=== PATIENT | female | born 1955 | race Caucasian/White ===

== ENCOUNTER 2018-12-31 05:52 | Emergency (ER) | payer BC, OTHER ==
[2018-12-31] MEDS ORDERED: Metoprolol Tartrate 25 MG Tab PO ONE (06:05)
[2018-12-31] MEDS ORDERED: Sodium Chloride 0.9% 10 ML Syringe FLUSH PRN (06:53)
[2018-12-31] MEDS ORDERED: Magnesium Sulfate/Water 2 GM in Premix Bag 1 BAG IV ONE (06:54)
--- NOTE | 2018-12-31 07:10 | EDM.PDOC ---
ED HPI GENERAL MEDICAL PROBLEM - General Chief Complaint: Cardiovascular Problem Stated Complaint: Hypertension Time Seen by Provider: 12/31/18 06:24 Source of Information: Reports: Patient History Limitations: Reports: No Limitations - History of Present Illness INITIAL COMMENTS - FREE TEXT/NARRATIVE: Patient here due to elevated BP this morning. Systolic exceeded 200 and diastolic was in the 100s. Was on same dose of HTN med for years per self report--a combination pill of Lisinopril and HCTZ. She said that this pill kept her in normal range very well. She admit that she does not take her BP at home, but was surprised to find that her BP was abnormal during a routine check up recently. Since then they have been changing around her medication. At times her BP was too low vs too high. Most recently they had her on Lisinopril 5mg alone, which was increased to 20mg yesterday because to BP was so elevated. Currently on no diuretic therapy. Some dizziness yesterday. Denies dizziness/headache/neuro changes/visual change today. Feels ok overall. Is a smoker, less then one pack per day. - Related Data Allergies Allergy/AdvReac Type Severity Reaction Status Date / Time aspirin Allergy Blisters Verified 05/14/18 08:52 morphine Allergy Hypotension Verified 05/14/18 08:52 Home Meds: Home Meds atorvaSTATin Calcium [Atorvastatin Calcium] 20 mg PO DAILY 10/29/17 [History] Acetaminophen [Tylenol] 650 mg PO Q4H PRN 12/31/18 [History] Cetirizine HCl 10 mg PO DAILY 12/31/18 [History] Cholecalciferol (Vitamin D3) [Vitamin D3] 2,000 unit PO DAILY 12/31/18 [History] Cyanocobalamin (Vitamin B12) [Cyanocobalamin] 1,000 mcg INJECT ASDIRECTED [History] Folic Acid 1 mg PO DAILY 12/31/18 [History] Lisinopril 20 mg PO DAILY 12/31/18 [History] Past Medical History HEENT History: Reports: Impaired Vision Cardiovascular History: Reports: High Cholesterol, Hypertension 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: Reports: COPD 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: - Infectious Disease History Infectious Disease History: Reports: Chicken Pox, Measles, Mumps - Past Surgical History Female Surgical History: Reports: Cystectomy Musculoskeletal Surgical History: Reports: Hip Replacement, Knee Replacement Social & Family History - Family History Family Medical History: Noncontributory - Tobacco Use Smoking Status *Q: Current Every Day Smoker Years of Tobacco use: 45 Packs/Tins Daily: 0.7 Smoking Cessation Information Provided To Patient: Patient Refused - Caffeine Use Caffeine Use: Reports: Soda - Alcohol Use Alcohol Use History: No Alcohol Use Frequency: Rarely - Recreational Drug Use Recreational Drug Use: No Drug Use in Last 12 Months: No ED ROS GENERAL - Review of Systems Review Of Systems: See Below Constitutional: Reports: No Symptoms HEENT: Reports: No Symptoms Respiratory: Reports: Cough (has chronic smoker's cough, no acute changes) Cardiovascular: Reports: No Symptoms. Denies: Chest Pain GI/Abdominal: Reports: No Symptoms : Reports: No Symptoms Musculoskeletal: Reports: No Symptoms Skin: Reports: No Symptoms Neurological: Reports: No Symptoms. Denies: Dizziness, Headache, Numbness, Tingling Psychiatric: Reports: No Symptoms Hematologic/Lymphatic: Reports: No Symptoms ED EXAM, GENERAL - Physical Exam Exam: See Below Exam Limited By: No Limitations General Appearance: Alert, WD/WN, No Apparent Distress Eye Exam: Bilateral Eye: EOMI, PERRL Ears: Normal External Exam, Hearing Grossly Normal Nose: No: Nasal Deformity, Nasal Swelling, Nasal Drainage Throat/Mouth: Normal Lips, Normal Voice, No Airway Compromise Head: Atraumatic, Normocephalic Neck: Supple, Non-Tender Respiratory/Chest: No Respiratory Distress, Lungs Clear, Normal Breath Sounds, No Accessory Muscle Use, Chest Non-Tender Cardiovascular: Regular Rate, Rhythm, No Murmur GI/Abdominal: Soft, Non-Tender (Female) Exam: Deferred Rectal (Female) Exam: Deferred Back Exam: No: CVA Tenderness (L), CVA Tenderness (R), Muscle Spasm Extremities: Non-Tender, Normal Capillary Refill Neurological: Alert, Oriented, Normal Cognition, Normal Gait, No Motor/Sensory Deficits Psychiatric: Normal Affect, Normal Mood Skin Exam: Warm, Dry, Intact Course - Vital Signs Last Recorded V/S: Last Vital Signs Temp 36.6 C 12/31/18 05:55 Pulse 71 12/31/18 08:35 Resp 18 12/31/18 08:35 BP 163/85 H 12/31/18 08:35 Pulse Ox 94 L 12/31/18 08:35 - Orders/Labs/Meds Orders: Active Orders 24 hr Category Date Time Status Cardiac Monitoring [RC] . DIRECTED Care 12/31/18 06:04 Active RT Aerosol Therapy [RC] ASDIRECTED Care 12/31/18 07:33 Active Saline Lock Insert [OM.PC] Routine Oth 12/31/18 06:53 Ordered Labs: Laboratory Tests 12/31/18 12/31/18 12/31/18 Range/Units 06:13 06:13 06:13 WBC 3.6 L (4.0-10.2) K/uL RBC 3.90 (3.77-5.09) M/uL Hgb 13.6 (11.7-15.5) g/dL Hct 40.4 (34.0-46.0) % MCV 103.6 H (84.0-98.0) fL MCH 34.9 H (28.2-33.3) pg MCHC 33.7 (31.7-36.0) g/dL RDW 12.1 (11.2-14.1) % Plt Count 124 L (150-350) K/uL Neut % (Auto) 45.4 (45.0-80.0) % Lymph % (Auto) 34.2 (10.0-50.0) % [place] % (Auto) 10.2 (2.0-14.0) % Eos % (Auto) 9.4 H (0.0-5.0) % Baso % (Auto) 0.8 (0.0-2.0) % Neut # (Auto) 1.65 (1.40-7.00) K/uL Lymph # (Auto) 1.24 (0.50-3.50) K/uL [place] # (Auto) 0.37 (0.00-1.00) K/uL Eos # (Auto) 0.34 (0.00-0.50) K/uL Baso # (Auto) 0.03 (0.00-0.20) K/uL Sodium 144 (136-145) mmol/L Potassium 3.9 (3.5-5.1) mmol/L Chloride 105 (98-107) mmol/L Carbon Dioxide 29.0 (21.0-32.0) mmol/L BUN 14 (7-18) mg/dL Creatinine 1.24 H (0.51-1.17) mg/dL Est Cr Clr Drug Dosing 41.79 mL/min Estimated GFR (MDRD) 44 mL/min Glucose 88 (74-106) mg/dL Calcium 8.9 (8.5-10.1) mg/dL Magnesium 1.3 L (1.8-2.4) mg/dL Total Bilirubin 0.5 (0.2-1.0) mg/dL AST 23 (15-37) U/L ALT 23 (12-78) U/L Alkaline Phosphatase 102 (46-116) IU/L Total Protein 6.3 L (6.4-8.2) g/dL Albumin 3.1 L (3.4-5.0) g/dL Meds: Medications Discontinued Medications Generic Name Dose Route Start Last Admin Trade Name Freq PRN Reason Stop Dose Admin Albuterol/Ipratropium 3 ml 12/31/18 07:33 12/31/18 07:53 Duoneb 3.0-0.5 Mg/3 Ml NEB 12/31/18 07:34 3 ml ONETIME ONE Administration Magnesium Sulfate 2 gm/ Premix 50 mls @ 50 mls/hr 12/31/18 06:54 12/31/18 07: 12 IV 12/31/18 07:53 50 mls/hr ONETIME ONE Administration Metoprolol Tartrate 25 mg 12/31/18 06:05 12/31/18 06:30 Lopressor PO 12/31/18 06:06 25 mg ONETIME ONE Administration Sodium Chloride 10 ml 12/31/18 06:53 12/31/18 07:13 Saline Flush FLUSH 10 ml ASDIRECTED PRN Administration Keep Vein Open - Re-Assessments/Exams Free Text/Narrative Re-Assessment/Exam: 12/31/18 07:21 Magnesium level quite low. WBC mildly reduced, lower platelets, albumin and total protein. BP initially seemed to improve after arrival to ER, patient had taken her Lisinopril 1/2 hour earlier. After it became elevated again a small dose of Metoprolol was given. Once lab results were available and it was known that she was significantly Mag deficient, IV Mag was ordered to help improve patient' s levels as low Mag is linked to hypertension. Suspect low levels were at least partially caused by the diuretic patient was previously taking. Patient agreeable with the IV Mag replacement. Time spent discussing nutrition/starting daily Magnesium replacement therapy. Plan at this time is to have patient monitored while receiving the Magnesium. If BPs improve and remain stable she will be discharged home. Patient will be able to monitor her BP trends at home. She is to follow up in the ER if she has further problems, but should otherwise follow up tomorrow at her clinic appointment for recheck and further medication adjustment as needed. Single neb given to patient to see if she felt subjective improvement in her chronic cough suspected to be related to COPD. Suggested that she may wish to discuss trying to add inhalers to her routine regimen to help with suspected COPD secondary to smoking BP much improved at time of discharge. Departure - Departure Time of Disposition: 08:30 Disposition: Home, Self-Care 01 Condition: Good Clinical Impression: Hypomagnesemia Hypertensive heart disease Qualifiers: Heart failure presence: unspecified whether heart failure present Qualified Code(s): I11.9 - Hypertensive heart disease without heart failure Instructions: Hypomagnesemia Referrals: Jordana Bush LINING CLEANER [Primary Care Provider] - Forms: ED Department Discharge Additional Instructions: Continue to monitor your blood pressures today every few hours and record them. Take your diary to your appointment tomorrow for review. We gave you a single dose of Metoprolol today in addition to giving Magnesium. It is recommended that you start taking a Magnesium supplement, aim for around 500mg daily for now. Continue to work with your primary doctor on adjusting your blood pressure medication. If you feel improved after the neb treatment you were given today (breathing a bit easier/less cough), also discuss possibly starting on some inhalers to help with lung function and lessen the impact of smoking related cough. Follow up in the ER as needed if you redevelop problems. - My Orders Last 24 Hours: My Active Orders 12/31/18 06:04 Cardiac Monitoring [RC] . DIRECTED 12/31/18 06:53 Saline Lock Insert [OM.PC] Routine 12/31/18 07:33 RT Aerosol Therapy [RC] ASDIRECTED - Assessment/Plan Last 24 Hours: My Active Orders 12/31/18 06:04 Cardiac Monitoring [RC] . DIRECTED 12/31/18 06:53 Saline Lock Insert [OM.PC] Routine 12/31/18 07:33 RT Aerosol Therapy [RC] ASDIRECTED
[2018-12-31] MEDS ORDERED: Albuterol/Ipratropium 3.0-0.5 MG/3 ML Neb Soln NEB ONE (07:33)
== END 2018-12-31 08:50 | disposition home or self-care (01) ==
LOC: LL.ED 05:52
DX: I11.9 Hypertensive heart disease without heart failure (principal); E83.42 Hypomagnesemia; J44.9 Chronic obstructive pulmonary disease, unspecified; Z79.899 Other long term (current) drug therapy; F17.210 Nicotine dependence, cigarettes, uncomplicated; Z88.6 Allergy status to analgesic agent; Z88.5 Allergy status to narcotic agent
CPT/HCPCS: 36415; 80053; 83735; 85025; 94640; 96365; 99283-25; A4217; A9270-GY; J3475; J7620-GY

== ENCOUNTER 2019-02-03 10:05 | Emergency (ER) | payer BC, OTHER ==
--- NOTE | 2019-02-03 10:41 | EDM.PDOC ---
ED HPI GENERAL MEDICAL PROBLEM - General Chief Complaint: Cardiovascular Problem Stated Complaint: HYPERTENSION Time Seen by Provider: 02/03/19 10:36 Source of Information: Reports: Patient History Limitations: Reports: No Limitations - History of Present Illness INITIAL COMMENTS - FREE TEXT/NARRATIVE: Patient is a 64-year-old female who works at [employer] states that she went to the nurse's station at [employer] to check her blood pressure at that time it was noted that her blood pressure was elevated at this time she was referred to the hospital for evaluation and treatment patient is initial blood pressure was 198/ 102 after about 30 minutes rest her blood pressure came down to 155/92. Patient is asymptomatic at this point with no chest pain headaches. Onset: Unknown/Unsure Duration: Waxing/Waning (Patient has been seen by provider and blood pressure medication adjusted in the clinic) Location: Reports: Generalized Severity: Mild Improves with: Reports: Rest Worsens with: Reports: Other (Activity) Associated Symptoms: Reports: No Other Symptoms - Related Data Allergies Allergy/AdvReac Type Severity Reaction Status Date / Time aspirin Allergy Blisters Verified 05/14/18 08:52 morphine Allergy Hypotension Verified 05/14/18 08:52 Home Meds: Home Meds atorvaSTATin Calcium [Atorvastatin Calcium] 20 mg PO DAILY 10/29/17 [History] Acetaminophen [Tylenol] 650 mg PO Q4H PRN 12/31/18 [History] Cetirizine HCl 10 mg PO DAILY 12/31/18 [History] Cholecalciferol (Vitamin D3) [Vitamin D3] 2,000 unit PO DAILY 12/31/18 [History] Cyanocobalamin (Vitamin B12) [Cyanocobalamin] 1,000 mcg INJECT ASDIRECTED [History] Folic Acid 1 mg PO DAILY 12/31/18 [History] Lisinopril 30 mg PO DAILY 12/31/18 [History] Magnesium 500 mg PO DAILY 02/03/19 [History] Metoprolol Succinate [Toprol XL 50mg] 50 mg PO DAILY 30 Days #30 tab.er [Rx] Past Medical History HEENT History: Reports: Impaired Vision Cardiovascular History: Reports: High Cholesterol, Hypertension 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: Reports: 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: - Infectious Disease History Infectious Disease History: Reports: Chicken Pox, Measles, Mumps - Past Surgical History Female Surgical History: Reports: Cystectomy Musculoskeletal Surgical History: Reports: Hip Replacement, Knee Replacement Social & Family History - Family History Family Medical History: Noncontributory - Tobacco Use Smoking Status *Q: Current Every Day Smoker Years of Tobacco use: 47 Packs/Tins Daily: 1 - Caffeine Use Caffeine Use: Reports: Soda ED ROS GENERAL - Review of Systems Review Of Systems: See Below Constitutional: Reports: No Symptoms HEENT: Reports: Other (Post nasal drip) Respiratory: Reports: Cough (Secondary to postnasal drip) Cardiovascular: Reports: No Symptoms Endocrine: Reports: No Symptoms GI/Abdominal: Reports: No Symptoms : Reports: No Symptoms Musculoskeletal: Reports: No Symptoms Skin: Reports: No Symptoms Neurological: Reports: No Symptoms Psychiatric: Reports: No Symptoms Hematologic/Lymphatic: Reports: No Symptoms Immunologic: Reports: No Symptoms ED EXAM, GENERAL - Physical Exam Exam: See Below Exam Limited By: No Limitations General Appearance: Alert, WD/WN, No Apparent Distress Eye Exam: Bilateral Eye: EOMI, PERRL Ears: Normal External Exam, Normal Canal, Hearing Grossly Normal, Normal TMs Ear Exam: Bilateral Ear: Auricle Normal, Canal Normal, TM normal Nose: Normal Inspection Throat/Mouth: Normal Inspection, Normal Lips, Normal Teeth, Normal Gums, Normal Oropharynx, Normal Voice, No Airway Compromise Head: Atraumatic, Normocephalic Neck: Normal Inspection, Supple, Non-Tender, Full Range of Motion Respiratory/Chest: No Respiratory Distress, Lungs Clear, Normal Breath Sounds, No Accessory Muscle Use, Chest Non-Tender, Stridor (Right mid chest) GI/Abdominal: Normal Bowel Sounds, Soft, Non-Tender, No Organomegaly, No Distention, No Abnormal Bruit, No Mass (Female) Exam: Deferred Rectal (Female) Exam: Deferred Back Exam: Normal Inspection, Full Range of Motion, NT Extremities: Normal Inspection, Normal Range of Motion, Non-Tender, Normal Capillary Refill, No Pedal Edema Neurological: Alert, Oriented, CN II-XII Intact, Normal Cognition, Normal Gait, Normal Reflexes, No Motor/Sensory Deficits Psychiatric: Normal Affect, Normal Mood Skin Exam: Warm, Dry, Intact, Normal Color, No Rash Lymphatic: No Adenopathy Course - Vital Signs Last Recorded V/S: Last Vital Signs Temp 98.2 F 02/03/19 10:05 Pulse 88 02/03/19 11:10 Resp 16 02/03/19 10:05 BP 152/92 H 02/03/19 11:10 Pulse Ox 93 L 02/03/19 10:05 - Orders/Labs/Meds Orders: Active Orders 24 hr Category Date Time Status Chest 2V [CR] Stat Exams 02/03/19 10:35 Ordered COMPREHENSIVE METABOLIC PN,CMP [CHEM] Stat Lab 02/03/19 10:34 Ordered MAGNESIUM [CHEM] Stat Lab 02/03/19 10:34 Ordered Metoprolol Succinate [Toprol XL] Med 02/03/19 11:04 Ordered 50 mg PO BEDTIME Medication Orders Metoprolol Succinate (Toprol Xl) 50 mg PO BEDTIME VIDYA Last Admin: 02/03/19 11:10 Dose: 50 mg Labs: Laboratory Tests 02/03/19 Range/Units 11:01 WBC 7.2 (4.0-10.2) K/uL RBC 4.16 (3.77-5.09) M/uL Hgb 14.4 (11.7-15.5) g/dL Hct 42.0 (34.0-46.0) % MCV 101.0 H (84.0-98.0) fL MCH 34.6 H (28.2-33.3) pg MCHC 34.3 (31.7-36.0) g/dL RDW 12.3 (11.2-14.1) % Plt Count 138 L (150-350) K/uL Neut % (Auto) 69.0 (45.0-80.0) % Lymph % (Auto) 24.1 (10.0-50.0) % [place] % (Auto) 5.7 (2.0-14.0) % Eos % (Auto) 0.8 (0.0-5.0) % Baso % (Auto) 0.4 (0.0-2.0) % Neut # (Auto) 4.96 (1.40-7.00) K/uL Lymph # (Auto) 1.73 (0.50-3.50) K/uL [place] # (Auto) 0.41 (0.00-1.00) K/uL Eos # (Auto) 0.06 (0.00-0.50) K/uL Baso # (Auto) 0.03 (0.00-0.20) K/uL Meds: Medications Generic Name Dose Route Start Last Admin Trade Name Ginger PRN Reason Stop Dose Admin Metoprolol Succinate 50 mg 02/03/19 11:04 02/03/19 11:10 Toprol Xl PO 50 mg BEDTIME VIDYA Administration Departure - Departure Time of Disposition: 11:53 Disposition: Home, Self-Care 01 Condition: Good Clinical Impression: Hypertensive heart disease Qualifiers: Heart failure presence: unspecified whether heart failure present Qualified Code(s): I11.9 - Hypertensive heart disease without heart failure Instructions: Metoprolol extended-release tablets Referrals: Jordana Bush COLLECTIONS CURATOR [Primary Care Provider] - Forms: ED Department Discharge Care Plan Goals: Patient seen in the ER Toprol XL started will recheck blood pressure in half an hour at that time I'll send her home she may return to work tomorrow follow-up with primary provider in 2 days0 - My Orders Last 24 Hours: My Active Orders 02/03/19 10:34 COMPREHENSIVE METABOLIC PN,CMP [CHEM] Stat MAGNESIUM [CHEM] Stat 02/03/19 10:35 Chest 2V [CR] Stat 02/03/19 11:04 Metoprolol Succinate [Toprol XL] 50 mg PO BEDTIME - Assessment/Plan Last 24 Hours: My Active Orders 02/03/19 10:34 COMPREHENSIVE METABOLIC PN,CMP [CHEM] Stat MAGNESIUM [CHEM] Stat 02/03/19 10:35 Chest 2V [CR] Stat 02/03/19 11:04 Metoprolol Succinate [Toprol XL] 50 mg PO BEDTIME
[2019-02-03] MEDS ORDERED: Metoprolol Succinate 50 MG Tab.ER PO SCH (11:04)
== END 2019-02-03 12:00 | disposition home or self-care (01) ==
LOC: LL.ED 10:05
DX: I11.9 Hypertensive heart disease without heart failure (principal); E78.00 Pure hypercholesterolemia, unspecified; I10 Essential (primary) hypertension; J44.9 Chronic obstructive pulmonary disease, unspecified; F17.210 Nicotine dependence, cigarettes, uncomplicated; Z88.6 Allergy status to analgesic agent; Z88.5 Allergy status to narcotic agent; Z79.899 Other long term (current) drug therapy
CPT/HCPCS: 36415; 71046; 80053; 83735; 85025; 99283; A9270

== ENCOUNTER 2020-12-11 21:18 | Observation (INO) | payer MEDICARE, OTHER ==
[2020-12-11] MEDS ORDERED: Potassium Chloride 10 MEQ Tab.ER PO ONE (22:26)
[2020-12-11] MEDS ORDERED: Acetaminophen 325 MG Tab PO ONE (22:26)
--- NOTE | 2020-12-11 22:40 | EDM.PDOC ---
ED HPI GENERAL MEDICAL PROBLEM - General Chief Complaint: Lower Extremity Injury/Pain Stated Complaint: right hip pain Time Seen by Provider: 12/11/20 22:01 Source of Information: Reports: Patient History Limitations: Reports: No Limitations - History of Present Illness INITIAL COMMENTS - FREE TEXT/NARRATIVE: Patient fell at home this morning. Unable to get up on own due to previous knee/hip replacement surgery. Unable to get a hand onto her phone either for most of the day. Finally able to use items to prod at the phone and get it to fall to floor so she could reach phone. Able to call for help approx 12 hours after fall. Complains of right lateral hip and right knee pain. Denies other injuries. Hx right hip arthroplasty. No new numbness or tingling of limbs. Did not hit head/no LOC. Denies new back/chest/abdominal/arm pain. No left sided leg pain. No nausea/emesis/bowel changes. No SOB. No other reported acute changes. Right Hip Pain Score (Numeric/FACES): 10 - Related Data Allergies Allergy/AdvReac Type Severity Reaction Status Date / Time aspirin Allergy Blisters Verified 12/11/20 21:36 morphine Allergy Hypotension Verified 12/11/20 21:36 Home Meds: Home Meds atorvaSTATin Calcium [Atorvastatin Calcium] 20 mg PO DAILY 10/29/17 [History] Acetaminophen [Tylenol] 650 mg PO Q4H PRN 12/31/18 [History] Cetirizine HCl 10 mg PO DAILY 12/31/18 [History] Cholecalciferol (Vitamin D3) [Vitamin D3] 2,000 unit PO DAILY 12/31/18 [History] Cyanocobalamin (Vitamin B12) [Cyanocobalamin] 1,000 mcg PO ASDIRECTED 12/31/18 [History] Folic Acid 1 mg PO DAILY 12/31/18 [History] Magnesium 500 mg PO DAILY 02/03/19 [History] Gabapentin [Neurontin] 200 mg PO BEDTIME 12/11/20 [History] Ibuprofen 600 mg PO BID PRN 12/11/20 [History] Losartan Potassium [Cozaar] 50 mg PO DAILY 12/11/20 [History] Past Medical History HEENT History: Reports: Impaired Vision Cardiovascular History: Reports: High Cholesterol, Hypertension 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: Reports: COPD 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: - Infectious Disease History Infectious Disease History: Reports: Chicken Pox, Measles, Mumps - Past Surgical History Cardiovascular Surgical History: Reports: None Female Surgical History: Reports: Cystectomy Musculoskeletal Surgical History: Reports: Hip Replacement, Knee Replacement Social & Family History - Family History Family Medical History: No Pertinent Family History - Tobacco Use Tobacco Use Status *Q: Current Every Day Tobacco User Years of Tobacco use: 49 Packs/Tins Daily: 0.7 - Caffeine Use Caffeine Use: Reports: Soda Caffeine Use Comment: very occasionally - Alcohol Use Alcohol Use History: No - Recreational Drug Use Recreational Drug Use: No Drug Use in Last 12 Months: No Review of Systems - Review of Systems Review Of Systems: Comprehensive ROS is negative, except as noted in HPI. ED EXAM, GENERAL - Physical Exam Exam: See Below Exam Limited By: No Limitations General Appearance: Alert, WD/WN, No Apparent Distress Eye Exam: Bilateral Eye: EOMI, PERRL Ears: Hearing Grossly Normal Nose: No: Nasal Deformity, Nasal Swelling, Nasal Drainage Throat/Mouth: Normal Lips, Normal Voice, No Airway Compromise Head: No: Facial Swelling, Facial Tenderness Neck: Supple, Non-Tender, Full Range of Motion Respiratory/Chest: No Respiratory Distress, Lungs Clear, Normal Breath Sounds, No Accessory Muscle Use, Chest Non-Tender Cardiovascular: Normal Peripheral Pulses, Regular Rate, Rhythm, No Edema, No Murmur GI/Abdominal: Normal Bowel Sounds, Soft, Non-Tender, No Distention (Female) Exam: Deferred Rectal (Female) Exam: Deferred Back Exam: No: Muscle Spasm, Paraspinal Tenderness, Vertebral Tenderness Extremities: Normal Capillary Refill, Limited Range of Motion (Right hip), Other (Tender lateral aspect of right hip. Tender around right knee diffusely. No deformity/swelling. Bruise medial knee. Able to move knee a bit when asked. ). No: Brice's Sign, Increased Warmth, Mottled, Pallor, Redness Neurological: Alert, Oriented, Normal Cognition Psychiatric: Normal Affect, Normal Mood Skin Exam: Warm, Dry. No: Wound/Incision Course - Vital Signs Last Recorded V/S: Last Vital Signs Temp 38.0 C 12/11/20 21:23 Pulse 89 12/11/20 21:40 Resp 20 12/11/20 21:23 BP 127/60 12/11/20 21:40 Pulse Ox 89 L 12/11/20 21:40 - Orders/Labs/Meds Orders: Active Orders 24 hr Category Date Time Status Chest 1V Frontal [CR] Stat Exams 12/11/20 22:27 Ordered Hip Min 2V or 3V Rt [CR] Stat Exams 12/11/20 21:28 Ordered Knee 1V or 2V Rt [CR] Stat Exams 12/11/20 22:24 Ordered Pelvis 1V or 2V [CR] Stat Exams 12/11/20 22:24 Taken Labs: Laboratory Tests 12/11/20 12/11/20 Range/Units 21:39 21:39 WBC 6.8 (4.0-10.2) K/uL RBC 2.87 L (3.77-5.09) M/uL Hgb 9.5 L D (11.7-15.5) g/dL Hct 29.4 L (34.0-46.0) % MCV 102.4 H (84.0-98.0) fL MCH 33.1 (28.2-33.3) pg MCHC 32.3 (31.7-36.0) g/dL RDW 16.5 H (11.2-14.1) % Plt Count 115 L (150-350) K/uL Neut % (Auto) 82.6 H (45.0-80.0) % Lymph % (Auto) 9.4 L (10.0-50.0) % [place] % (Auto) 7.6 (2.0-14.0) % Eos % (Auto) 0.0 (0.0-5.0) % Baso % (Auto) 0.4 (0.0-2.0) % Neut # (Auto) 5.63 (1.40-7.00) K/uL Lymph # (Auto) 0.64 (0.50-3.50) K/uL [place] # (Auto) 0.52 (0.00-1.00) K/uL Eos # (Auto) 0.00 (0.00-0.50) K/uL Baso # (Auto) 0.03 (0.00-0.20) K/uL Sodium 141 (136-145) mmol/L Potassium 3.4 L (3.5-5.1) mmol/L Chloride 102 (98-107) mmol/L Carbon Dioxide 29.8 (21.0-32.0) mmol/L BUN 15 (7-18) mg/dL Creatinine 1.12 (0.51-1.17) mg/dL Est Cr Clr Drug Dosing 45.97 mL/min Estimated GFR (MDRD) 49 mL/min Glucose 143 H (70-99) mg/dL Calcium 8.5 (8.5-10.1) mg/dL Magnesium 1.2 L (1.8-2.4) mg/dL Total Bilirubin 1.1 H (0.2-1.0) mg/dL AST 35 (15-37) U/L ALT 22 (12-78) U/L Alkaline Phosphatase 111 (46-116) IU/L Total Protein 5.6 L (6.4-8.2) g/dL Albumin 2.6 L (3.4-5.0) g/dL Meds: Medications Discontinued Medications Generic Name Dose Route Start Last Admin Trade Name Freq PRN Reason Stop Dose Admin Acetaminophen 650 mg 12/11/20 22:26 12/11/20 22:55 Acetaminophen 325 Mg Tab PO 12/11/20 22:27 650 mg NOW ONE Administration Magnesium Sulfate/Dextrose 1 100 mls @ 100 mls/hr 12/11/20 22:25 12/11/20 23:22 gm/ Premix IV 12/11/20 23:24 100 mls/hr ONETIME ONE Administration Potassium Chloride 20 meq 12/11/20 22:26 12/11/20 22:55 Potassium Chloride 10 Meq Tab.Er PO 12/11/20 22:27 20 meq ONETIME ONE Administration - Re-Assessments/Exams Free Text/Narrative Re-Assessment/Exam: 12/11/20 23:29 Xrays and basic labs ordered. Wendy-prosthetic fracture noted right hip. No obvious fracture pelvis/knee noted. Significant degenerative changes right knee joint. Chest xray shows COPD/fibrosis but no obvious acute changes. Patient is anemic, has mildly low K, and significantly low Mag. Mag replacement initiated. Call placed to [facility] and patient reviewed with Dr. Navarro/Rachele. No available beds at their facility tonight. Will admit patient observation here and obtain CT study of right hip. [facility] anticipates that a bed will open up tomorrow and patient will then be transferred to [place] tomorrow. Departure - Departure Time of Disposition: 23:40 Disposition: Refer to Observation Clinical Impression: Wendy-prosthetic femoral shaft fracture, Hypomagnesemia, Hypokalemia Anemia Qualifiers: Anemia type: unspecified type Qualified Code(s): D64.9 - Anemia, unspecified - Discharge Information *PRESCRIPTION DRUG MONITORING PROGRAM REVIEWED*: Not Applicable *COPY OF PRESCRIPTION DRUG MONITORING REPORT IN PATIENT JESSICA: Not Applicable Referrals: Jordana Bush, PROCEDURE WRITER [Primary Care Provider] - Forms: ED Department Discharge Sepsis Event Note (ED) - Evaluation Sepsis Screening Result: No Definite Risk - Focused Exam Vital Signs: Vital Signs Temp Pulse Resp BP Pulse Ox 12/11/20 21:40 89 127/60 89 L 12/11/20 21:25 89 128/74 89 L 12/11/20 21:23 38.0 C 83 20 138/85 92 L - Problem List & Annotations (1) Wendy-prosthetic femoral shaft fracture SNOMED Code(s): 841742355 Code(s): M97.8XXA - PERIPROSTH FRACTURE AROUND OTHER INTERNAL PROSTH JOINT, INIT; Z96.649 - PRESENCE OF UNSPECIFIED ARTIFICIAL HIP JOINT Status: Acute Priority: High Onset Date: 12/11/20 Annotation/Comment:: CT ordered for better evaluation of fracture. (2) Hypomagnesemia SNOMED Code(s): 412893378 Code(s): E83.42 - HYPOMAGNESEMIA Status: Chronic Priority: Medium Annotation/Comment:: Has had low Mag in past. Significantly low tonight. IV replacement ordered. (3) Hypokalemia SNOMED Code(s): 83599375 Code(s): E87.6 - HYPOKALEMIA Status: Acute Priority: Low Annotation/Comment:: mildly low value. PO supplementation initiated. (4) Hypertensive heart disease SNOMED Code(s): 14016718 Code(s): I11.9 - HYPERTENSIVE HEART DISEASE WITHOUT HEART FAILURE Status: Chronic Priority: Low Annotation/Comment:: observe trends. Stable at this time. Qualifiers: Heart failure presence: unspecified whether heart failure present Qualified Code(s): I11.9 - Hypertensive heart disease without heart failure (5) Anemia SNOMED Code(s): 216247716 Code(s): D64.9 - ANEMIA, UNSPECIFIED Status: Acute Priority: Medium Annotation/Comment:: Hgb 9.5. Patient to continue workup for this at [facility] and with her primary provider. 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 - Problem List Review Problem List Initiated/Reviewed/Updated: Yes - My Orders Last 24 Hours: My Active Orders 12/11/20 21:28 Hip Min 2V or 3V Rt [CR] Stat 12/11/20 22:24 Knee 1V or 2V Rt [CR] Stat Pelvis 1V or 2V [CR] Stat 12/11/20 22:27 Chest 1V Frontal [CR] Stat - Assessment/Plan Admission H&P: Please use this note as an admission H&P Last 24 Hours: My Active Orders 12/11/20 21:28 Hip Min 2V or 3V Rt [CR] Stat 12/11/20 22:24 Knee 1V or 2V Rt [CR] Stat Pelvis 1V or 2V [CR] Stat 12/11/20 22:27 Chest 1V Frontal [CR] Stat Assessment:: as above. Stable and suitable for general supervision. Plan: as above. Pain control/assistance with ADLs until able to transfer pt to [facility] for Orthopedic care.
[2020-12-11] MEDS ORDERED: Gabapentin 100 MG Cap PO ONE (23:58)
[2020-12-12] MEDS ORDERED: Acetaminophen 325 MG Tab PO PRN (00:40)
[2020-12-12] MEDS ORDERED: Ibuprofen 200 MG Tab PO PRN (00:40)
[2020-12-12] MEDS ORDERED: Sodium Chloride 0.9% 1,000 ML IV SCH ×2 (01:00→16:18)
[2020-12-12] MEDS: Nicotine 21 MG/24 Hr Patch TRDERM SCH ×3 (01:33→17:03)
[2020-12-12] MEDS: traMADol 50 MG Tab PO PRN ×4 (01:50→16:49)
[2020-12-12] MEDS ORDERED: atorvaSTATin 10 MG Tab PO SCH (08:00)
[2020-12-12] MEDS ORDERED: Cetirizine 10 MG Tab PO SCH (08:00)
[2020-12-12] MEDS ORDERED: Losartan 50 MG Tab PO SCH (08:00)
[2020-12-12] MEDS ORDERED: Potassium Chloride 20 MEQ Tab.ER PO ONE ×3 (09:30→13:30)
--- NOTE | 2020-12-12 17:08 | PCM.DCSUM1 ---
Discharge Summary - Hospital Course Brief History: Patient admitted observation with acute periprosthetic fracture right hip for pain control while waiting for clearance to transfer patient to Ortho at [facility] Diagnosis: Stroke: No - Discharge Data Discharge Date: 12/12/20 Discharge Disposition: DC/Tfer to Acute Hospital 02 Condition: Good - Referral to Home Health Primary Care Physician: Jordana Bush DITCHER - Discharge Diagnosis/Problem(s) (1) Wendy-prosthetic femoral shaft fracture SNOMED Code(s): 255810546 ICD Code: M97.8XXA - PERIPROSTH FRACTURE AROUND OTHER INTERNAL PROSTH JOINT, INIT; Z96.649 - PRESENCE OF UNSPECIFIED ARTIFICIAL HIP JOINT Status: Acute Priority: High Current Visit: No Onset Date: 12/11/20 Problem Details: CT ordered for better evaluation of fracture and shared with [facility]. Patient has been doing well on bedrest with PO Tylenol/Tramadol (2) Hypomagnesemia SNOMED Code(s): 202799242 ICD Code: E83.42 - HYPOMAGNESEMIA Status: Chronic Priority: Medium Current Visit: No Problem Details: Has had low Mag in past. Significantly low in ER. IV replacement with normal level noted today. (3) Hypokalemia SNOMED Code(s): 88621650 ICD Code: E87.6 - HYPOKALEMIA Status: Acute Priority: Low Current V isit: No Problem Details: mildly low value. PO supplementation initiated. Normal level at recheck this afternoon (4) Hypertensive heart disease SNOMED Code(s): 45574216 ICD Code: I11.9 - HYPERTENSIVE HEART DISEASE WITHOUT HEART FAILURE Status: Chronic Priority: Low Current Visit: No Problem Details: observe trends. Stable at this time. Qualifiers: Heart failure presence: unspecified whether heart failure present Qualified Code(s): I11.9 - Hypertensive heart disease without heart failure (5) Anemia SNOMED Code(s): 875370023 ICD Code: D64.9 - ANEMIA, UNSPECIFIED Status: Acute Priority: Medium Current Visit: No Problem Details: Hgb 9.5. Patient to continue workup for this at [facility] and with her primary provider. 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 - Patient Summary/Data Hospital Course: As above. Main goal of observation was pain control and assistance with ADLs while waiting to be able to transfer patient to higher level of care at [facility]. CT performed per Ortho request and scan sent to [facility]. Patient also with low K and Mag. Levels normalized after replacement initiated after admission. Will let [facility] determine if they wish to add Lovenox to regimen as patient is thrombocytopenic and it is anticipated that she will have surgery tomorrow. Patient comfortable as noted above using PO pain meds. - Discharge Plan *PRESCRIPTION DRUG MONITORING PROGRAM REVIEWED*: Not Applicable *COPY OF PRESCRIPTION DRUG MONITORING REPORT IN PATIENT JESSICA: Not Applicable Home Medications: Home Meds atorvaSTATin Calcium [Atorvastatin Calcium] 20 mg PO DAILY 10/29/17 [History] Acetaminophen [Tylenol] 650 mg PO Q4H PRN 12/31/18 [History] Cetirizine HCl 10 mg PO DAILY 12/31/18 [History] Cholecalciferol (Vitamin D3) [Vitamin D3] 2,000 unit PO DAILY 12/31/18 [History] Cyanocobalamin (Vitamin B12) [Cyanocobalamin] 1,000 mcg PO ASDIRECTED 12/31/18 [History] Folic Acid 1 mg PO DAILY 12/31/18 [History] Magnesium 500 mg PO DAILY 02/03/19 [History] Gabapentin [Neurontin] 200 mg PO BEDTIME 12/11/20 [History] Ibuprofen 600 mg PO BID PRN 12/11/20 [History] Losartan Potassium [Cozaar] 50 mg PO DAILY 12/11/20 [History] Forms: ED Department Discharge Referrals: Jordana Bush NP [Primary Care Provider] - - Discharge Summary/Plan Comment DC Time >30 min.: No - General Info Date of Service: 12/12/20 Admission Dx/Problem (Free Text: Paraprosthetic fracture right hip, low magnesium Functional Status: Reports: Pain Controlled, Tolerating Diet, Urinating. Denies: Ambulating, New Symptoms - Review of Systems General: Denies: Fever, Weakness, Fatigue, Malaise, Chills, Night Sweats HEENT: Reports: No Symptoms, Glasses Pulmonary: Reports: No Symptoms. Denies: Shortness of Breath, Pleuritic Chest Pain, Cough Cardiovascular: Reports: No Symptoms. Denies: Chest Pain Gastrointestinal: Reports: Diarrhea (several loose stools today). Denies: Abdominal Pain, Hematochezia, Nausea, Vomiting Genitourinary: Reports: No Symptoms Musculoskeletal: Reports: Other (right hip/knee pain) Skin: Reports: Other (right knee) Neurological: Reports: No Symptoms Psychiatric: Reports: No Symptoms - Patient Data Vitals - Most Recent: Last Vital Signs Temp 37.3 C 12/12/20 16:00 Pulse 78 12/12/20 16:00 Resp 16 12/12/20 16:00 BP 115/66 12/12/20 16:00 Pulse Ox 96 12/12/20 16:00 Weight - Most Recent: 69.853 kg I&O - Last 24 hours: Intake & Output 12/12/20 12/12/20 12/12/20 06:59 14:59 22:59 Intake Total 50 400 Output Total 60 Balance -10 400 Lab Results - Last 24 hrs: Laboratory Results - last 24 hr 12/11/20 12/11/20 12/12/20 Range/Units 21:39 21:39 07:10 WBC 6.8 (4.0-10.2) K/uL RBC 2.87 L (3.77-5.09) M/uL Hgb 9.5 L D (11.7-15.5) g/dL Hct 29.4 L (34.0-46.0) % MCV 102.4 H (84.0-98.0) fL MCH 33.1 (28.2-33.3) pg MCHC 32.3 (31.7-36.0) g/dL RDW 16.5 H (11.2-14.1) % Plt Count 115 L (150-350) K/uL Neut % (Auto) 82.6 H (45.0-80.0) % Lymph % (Auto) 9.4 L (10.0-50.0) % [place] % (Auto) 7.6 (2.0-14.0) % Eos % (Auto) 0.0 (0.0-5.0) % Baso % (Auto) 0.4 (0.0-2.0) % Neut # (Auto) 5.63 (1.40-7.00) K/uL Lymph # (Auto) 0.64 (0.50-3.50) K/uL [place] # (Auto) 0.52 (0.00-1.00) K/uL Eos # (Auto) 0.00 (0.00-0.50) K/uL Baso # (Auto) 0.03 (0.00-0.20) K/uL Sodium 141 140 (136-145) mmol/L Potassium 3.4 L 2.9 L* (3.5-5.1) mmol/L Chloride 102 104 (98-107) mmol/L Carbon Dioxide 29.8 29.3 (21.0-32.0) mmol/L BUN 15 14 (7-18) mg/dL Creatinine 1.12 1.09 (0.51-1.17) mg/dL Est Cr Clr Drug Dosing 45.97 47.24 mL/min Estimated GFR (MDRD) 49 50 mL/min Glucose 143 H 116 H (70-99) mg/dL Calcium 8.5 8.0 L (8.5-10.1) mg/dL Magnesium 1.2 L 2.0 (1.8-2.4) mg/dL Total Bilirubin 1.1 H (0.2-1.0) mg/dL AST 35 (15-37) U/L ALT 22 (12-78) U/L Alkaline Phosphatase 111 (46-116) IU/L Creatine Kinase (26-308) U/L Total Protein 5.6 L (6.4-8.2) g/dL Albumin 2.6 L (3.4-5.0) g/dL 12/12/20 12/12/20 12/12/20 Range/Units 07:10 07:10 15:35 WBC 4.8 (4.0-10.2) K/uL RBC 2.61 L (3.77-5.09) M/uL Hgb 8.5 L (11.7-15.5) g/dL Hct 26.9 L (34.0-46.0) % MCV 103.1 H (84.0-98.0) fL MCH 32.6 (28.2-33.3) pg MCHC 31.6 L (31.7-36.0) g/dL RDW 17.0 H (11.2-14.1) % Plt Count 98 L (150-350) K/uL Neut % (Auto) 62.6 (45.0-80.0) % Lymph % (Auto) 28.3 (10.0-50.0) % [place] % (Auto) 8.5 (2.0-14.0) % Eos % (Auto) 0.4 (0.0-5.0) % Baso % (Auto) 0.2 (0.0-2.0) % Neut # (Auto) 3.03 (1.40-7.00) K/uL Lymph # (Auto) 1.37 (0.50-3.50) K/uL [place] # (Auto) 0.41 (0.00-1.00) K/uL Eos # (Auto) 0.02 (0.00-0.50) K/uL Baso # (Auto) 0.01 (0.00-0.20) K/uL Sodium 135 L (136-145) mmol/L Potassium 4.0 (3.5-5.1) mmol/L Chloride 102 (98-107) mmol/L Carbon Dioxide 29.7 (21.0-32.0) mmol/L BUN 15 (7-18) mg/dL Creatinine 1.10 (0.51-1.17) mg/dL Est Cr Clr Drug Dosing 46.81 mL/min Estimated GFR (MDRD) 50 mL/min Glucose 128 H (70-99) mg/dL Calcium 8.0 L (8.5-10.1) mg/dL Magnesium (1.8-2.4) mg/dL Total Bilirubin (0.2-1.0) mg/dL AST (15-37) U/L ALT (12-78) U/L Alkaline Phosphatase (46-116) IU/L Creatine Kinase 166 (26-308) U/L Total Protein (6.4-8.2) g/dL Albumin (3.4-5.0) g/dL Med Orders - Current: Current Medications Acetaminophen (Acetaminophen 325 Mg Tab) 650 mg PO Q4H PRN PRN Reason: Pain Atorvastatin Calcium (Atorvastatin 10 Mg Tab) 20 mg PO DAILY [facility] Last Admin: 12/12/20 07:18 Dose: 20 mg Documented by: Cetirizine HCl (Cetirizine 10 Mg Tab) 10 mg PO DAILY [facility] Last Admin: 12/12/20 07:19 Dose: 10 mg Documented by: Gabapentin (Gabapentin 100 Mg Cap) 200 mg PO BEDTIME [facility] Sodium Chloride (Normal Saline) 1,000 mls @ 75 mls/hr IV ASDIRECTED [facility] Last Admin: 12/12/20 16:47 Dose: 75 mls/hr Documented by: Ibuprofen (Ibuprofen 200 Mg Tab) 600 mg PO BID PRN PRN Reason: Pain Losartan Potassium (Losartan 50 Mg Tab) 50 mg PO DAILY [facility] Last Admin: 12/12/20 07:20 Dose: 50 mg Documented by: Nicotine (Nicotine 21 Mg/24 Hr Patch) 21 mg TRDERM DAILY [facility] Last Admin: 12/12/20 07:17 Dose: Not Given Documented by: Tramadol HCl (Tramadol 50 Mg Tab) 50 mg PO Q4H PRN PRN Reason: Pain Last Admin: 12/12/20 16:49 Dose: 50 mg Documented by: Discontinued Medications Acetaminophen (Acetaminophen 325 Mg Tab) 650 mg PO NOW ONE Stop: 12/11/20 22:27 Last Admin: 12/11/20 22:55 Dose: 650 mg Documented by: Gabapentin (Gabapentin 100 Mg Cap) 200 mg PO ONETIME ONE Stop: 12/11/20 23:59 Last Admin: 12/12/20 01:32 Dose: 200 mg Documented by: Magnesium Sulfate/Dextrose 1 (gm/ Premix) 100 mls @ 100 mls/hr IV ONETIME ONE Stop: 12/11/20 23:24 Last Admin: 12/11/20 23:22 Dose: 100 mls/hr Documented by: Magnesium Sulfate/Dextrose 1 (gm/ Premix) 100 mls @ 100 mls/hr IV ONETIME ONE Stop: 12/12/20 01:39 Last Admin: 12/12/20 01:31 Dose: 100 mls/hr Documented by: Sodium Chloride (Normal Saline) 1,000 mls @ 100 mls/hr IV ASDIRECTED [facility] Last Admin: 12/12/20 04:10 Dose: 100 mls/hr Documented by: Potassium Chloride (Potassium Chloride 10 Meq Tab.Er) 20 meq PO ONETIME ONE Stop: 12/11/20 22:27 Last Admin: 12/11/20 22:55 Dose: 20 meq Documented by: Potassium Chloride (Potassium Chloride 20 Meq Tab.Er) 40 meq PO NOW ONE Stop: 12/12/20 09:31 Last Admin: 12/12/20 09:51 Dose: 40 meq Documented by: Potassium Chloride (Potassium Chloride 20 Meq Tab.Er) 20 meq PO ONETIME ONE Stop: 12/12/20 11:31 Last Admin: 12/12/20 11:37 Dose: 20 meq Documented by: Potassium Chloride (Potassium Chloride 20 Meq Tab.Er) 20 meq PO ONETIME ONE Stop: 12/12/20 13:31 Last Admin: 12/12/20 14:03 Dose: 20 meq Documented by: - Exam General: Reports: Alert, Oriented, Cooperative, No Acute Distress HEENT: Reports: Pupils Equal, Pupils Reactive, EOMI, Mucous Membr. Moist/[place] Neck: Reports: Supple Lungs: Reports: Clear to Auscultation, Normal Respiratory Effort, Decreased Breath Sounds (throughout) Cardiovascular: Reports: Regular Rate, Regular Rhythm GI/Abdominal Exam: Normal Bowel Sounds, Soft, Non-Tender, No Distention (Female) Exam: Deferred Rectal (Female) Exam: Deferred Back Exam: Denies: Muscle Spasm, Paraspinal Tenderness, Vertebral Tenderness Extremities: Normal Capillary Refill, Limited Range of Motion (right hip/right hip pain). No: Brice's Sign, Increased Warmth, Mottled, Pallor, Redness Skin: Reports: Warm, Dry, Intact Neurological: Reports: No New Focal Deficit Psy/Mental Status: Reports: Alert, Normal Affect, Normal Mood
[2020-12-12] MEDS ORDERED: Gabapentin 100 MG Cap PO SCH (20:00)
== END 2020-12-12 17:50 ==
LOC: LL.ED 21:18 → LL.MS 23:28 → UNDOADMOB 23:28 → LL.MS 12-12 00:38
PROVIDERS: ADMIT Emergency Medicine; ATTEND Emergency Medicine
DX: M97.01XA Periprosthetic fracture around internal prosthetic right hip joint, initial encounter (principal); I10 Essential (primary) hypertension; E78.00 Pure hypercholesterolemia, unspecified; J44.9 Chronic obstructive pulmonary disease, unspecified; F17.210 Nicotine dependence, cigarettes, uncomplicated; E83.42 Hypomagnesemia; E87.6 Hypokalemia; I11.9 Hypertensive heart disease without heart failure; D64.9 Anemia, unspecified; E78.5 Hyperlipidemia, unspecified; Z88.5 Allergy status to narcotic agent; Z98.890 Other specified postprocedural states; Z79.899 Other long term (current) drug therapy; Z88.8 Allergy status to other drugs, medicaments and biological substances
CPT/HCPCS: 36415; 71045; 72170; 73560-RT; 73700-RT; 80048; 80053; 82550; 83735; 85025; 96365; 96366; 99217; 99220; 99285-25; A9270-GY; G0378; J3475; J7030

== ENCOUNTER 2021-03-29 09:05 | Observation (INO) | payer MEDICARE, OTHER ==
--- NOTE | 2021-03-29 09:48 | EDM.PDOC ---
ED HPI GENERAL MEDICAL PROBLEM - General Chief Complaint: Upper Extremity Injury/Pain Stated Complaint: Fall Time Seen by Provider: 03/29/21 09:30 Source of Information: Reports: Patient History Limitations: Reports: No Limitations - History of Present Illness INITIAL COMMENTS - FREE TEXT/NARRATIVE: Patient has long history of dizziness (greater than one year/extensively worked up by primary providers) and had episode last night which caused her to fall at home. Had pain in right rib area along with pain left hand. Some discomfort right knee. Did not lose consciousness. Was unable to get to phone or get herself off of the ground. Has limited mobility/uses a walker for ambulation. Slept on couch cushions she was able to get on floor. This morning able to get to a phone and call for assistance. No other acute pain complaints or changes reported upon arrival. Has bruised/swollen left hand. Right Lower Chest Pain Score (Numeric/FACES): 4 Right Knee Pain Score (Numeric/FACES): 4 Left Hand Pain Score (Numeric/FACES): 8 - Related Data Allergies Allergy/AdvReac Type Severity Reaction Status Date / Time aspirin Allergy Blisters Verified 03/29/21 10:58 morphine Allergy Hypotension Verified 03/29/21 10:58 Home Meds: Home Meds atorvaSTATin Calcium [Atorvastatin Calcium] 20 mg PO DAILY 10/29/17 [History] Acetaminophen [Tylenol] 650 mg PO Q4H PRN 12/31/18 [History] Cetirizine HCl 10 mg PO DAILY 12/31/18 [History] Cholecalciferol (Vitamin D3) [Vitamin D3] 2,000 unit PO DAILY 12/31/18 [History] Cyanocobalamin (Vitamin B12) [Cyanocobalamin] 1,000 mcg PO ASDIRECTED 12/31/18 [History] Folic Acid 1 mg PO DAILY 12/31/18 [History] Magnesium 500 mg PO DAILY 02/03/19 [History] Gabapentin [Neurontin] 200 mg PO BEDTIME 12/11/20 [History] Ibuprofen 600 mg PO BID PRN 12/11/20 [History] Past Medical History HEENT History: Reports: Impaired Vision, Other (See Below) (chronic dizziness) Cardiovascular History: Reports: High Cholesterol, Hypertension 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: Reports: 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: Musculoskeletal History: Reports: Other (See Below) (Osteopenia) Neurological History: Reports: Vertigo - Infectious Disease History Infectious Disease History: Reports: Chicken Pox, Measles, Mumps - Past Surgical History Cardiovascular Surgical History: Reports: None Female Surgical History: Reports: Cystectomy Musculoskeletal Surgical History: Reports: Hip Replacement, Knee Replacement Social & Family History - Family History Family Medical History: No Pertinent Family History - Tobacco Use Tobacco Use Status *Q: Current Every Day Tobacco User - Caffeine Use Caffeine Use: Reports: Soda Caffeine Use Comment: very occasionally - Alcohol Use Alcohol Use History: Yes Number of Drinks Per Day Comment: Has several drinks every three days or so - Recreational Drug Use Recreational Drug Use: No Drug Use in Last 12 Months: No ED ROS GENERAL - Review of Systems Review Of Systems: See Below Constitutional: Reports: No Symptoms HEENT: Reports: No Symptoms Respiratory: Reports: Pleuritic Chest Pain (right sided rib pain). Denies: Shor tness of Breath, Wheezing, Cough, Sputum, Hemoptysis Cardiovascular: Reports: Chest Pain (right sided rib pain) GI/Abdominal: Reports: No Symptoms : Reports: No Symptoms Musculoskeletal: Reports: Other (right knee and left hand pain) Skin: Reports: Bruising (left hand) Neurological: Reports: Dizziness (chronic), Difficulty Walking (chronic), Other (No acute changes from baseline). Denies: Confusion, Headache Psychiatric: Reports: No Symptoms Hematologic/Lymphatic: Reports: No Symptoms Immunologic: Reports: No Symptoms ED EXAM, GENERAL - Physical Exam Exam: See Below Exam Limited By: No Limitations General Appearance: Alert, WD/WN, No Apparent Distress, Other (appears older than stated age) Eye Exam: Bilateral Eye: EOMI, PERRL Ears: Normal External Exam, Normal Canal, Hearing Grossly Normal Nose: No: Nasal Deformity, Nasal Swelling, Nasal Drainage Throat/Mouth: Normal Lips, Normal Voice, No Airway Compromise Head: Atraumatic, Normocephalic. No: Facial Swelling, Facial Tenderness, Sinus Tenderness Neck: Supple, Non-Tender, Full Range of Motion Respiratory/Chest: No Respiratory Distress, Wheezing (minimal/bilat), Other (tender with palpation right lower anterior chest wall). No: Crackles, Rales, Rhonchi Cardiovascular: Regular Rate, Rhythm, No Murmur GI/Abdominal: Normal Bowel Sounds, Soft, Non-Tender, No Distention (Female) Exam: Deferred Rectal (Female) Exam: Deferred Back Exam: No: CVA Tenderness (L), CVA Tenderness (R), Muscle Spasm Extremities: Other (left hand bruised and swollen/sore around prox metacarpals medially. Able to wiggle fingers. Nontender prox to left wrist. Unremarkable right arm/left leg. Right knee sore with ROM but able to fully extend. No focal tenderness/swelling noted. ) Neurological: Alert, Oriented, Other (equal tone and strength bilaterally upper and lower limbs. ) Psychiatric: Normal Affect, Normal Mood Skin Exam: Warm, Dry, Ecchymosis (left hand) ED GENERAL MEDICAL PROCEDURES - Splinting Left Thumb Splint Site: Left thumb/wrist Pre-procedure NV status: Normal Post-procedure NV status: Normal Splint Type: Custom Splint Material: Fiberglass Splint Design: Thumb Spica Applied & Form Fitted By: Provider Provider Post-Splint Application NV Check: NV Status Normal, Good Position Complications: No Course - Vital Signs Last Recorded V/S: Last Vital Signs Temp 36.7 C 03/29/21 10:45 Pulse 84 03/29/21 11:30 Resp 18 03/29/21 11:30 BP 148/64 H 03/29/21 11:30 Pulse Ox 99 03/29/21 11:30 - Orders/Labs/Meds Orders: Active Orders 24 hr Category Date Time Status Chest wo Cont [CT] Stat Exams 03/29/21 09:44 Taken Hand Comp Min 3V Lt [CR] Stat Exams 03/29/21 09:45 Taken Knee 3V Rt [CR] Stat Exams 03/29/21 09:46 Taken Sodium Chloride 0.9% [Saline Flush] Med 03/29/21 10:52 Active 10 ml FLUSH ASDIRECTED PRN Saline Lock Insert [OM.PC] Routine Oth 03/29/21 10:53 Ordered Medication Orders Acetaminophen (Acetaminophen 325 Mg Tab) 650 mg PO Q4H PRN PRN Reason: Pain Atorvastatin Calcium (Atorvastatin 10 Mg Tab) 20 mg PO DAILY [facility] Cetirizine HCl (Cetirizine 10 Mg Tab) 10 mg PO DAILY [facility] Cholecalciferol (Cholecalciferol (Vitamin D3) 25 Mcg Tab) 50 mcg PO DAILY [facility] Folic Acid (Folic Acid 1 Mg Tab) 1 mg PO DAILY [facility] Gabapentin (Gabapentin 100 Mg Cap) 200 mg PO BEDTIME [facility] Magnesium Sulfate/Dextrose 1 (gm/ Premix) 100 mls @ 100 mls/hr IV ONETIME ONE Stop: 03/29/21 15:10 Sodium Chloride (Normal Saline) 1,000 mls @ 75 mls/hr IV ASDIRECTED [facility] Ketorolac Tromethamine (Ketorolac 15 Mg/Ml Sdv) 15 mg IVPUSH Q6H PRN PRN Reason: Pain Stop: 04/03/21 15:01 Miscellaneous Information (Remove Patch Nicotine) 1 ea TRDERM DAILY [facility] Nicotine (Nicotine 21 Mg/24 Hr Patch) 21 mg TRDERM DAILY [facility] Sodium Chloride (Sodium Chloride 0.9% 10 Ml Syringe) 10 ml FLUSH ASDIRECTED PRN PRN Reason: Keep Vein Open Last Admin: 03/29/21 10:53 Dose: 10 ml Documented by: ARLET Labs: Laboratory Tests 03/29/21 03/29/21 03/29/21 Range/Units 09:35 09:41 09:41 WBC 4.4 (4.0-10.2) K/uL RBC 3.49 L (3.77-5.09) M/uL Hgb 11.5 L D (11.7-15.5) g/dL Hct 35.5 (34.0-46.0) % MCV 101.7 H (84.0-98.0) fL MCH 33.0 (28.2-33.3) pg MCHC 32.4 (31.7-36.0) g/dL RDW 15.2 H (11.2-14.1) % Plt Count 220 D (150-350) K/uL Neut % (Auto) 62.0 (45.0-80.0) % Lymph % (Auto) 21.9 (10.0-50.0) % Brown % (Auto) 14.2 H (2.0-14.0) % Eos % (Auto) 1.4 (0.0-5.0) % Baso % (Auto) 0.5 (0.0-2.0) % Neut # (Auto) 2.75 (1.40-7.00) K/uL Lymph # (Auto) 0.97 (0.50-3.50) K/uL Brown # (Auto) 0.63 (0.00-1.00) K/uL Eos # (Auto) 0.06 (0.00-0.50) K/uL Baso # (Auto) 0.02 (0.00-0.20) K/uL Sodium 142 (136-145) mmol/L Potassium 3.7 (3.5-5.1) mmol/L Chloride 107 (98-107) mmol/L Carbon Dioxide 23.7 (21.0-32.0) mmol/L Anion Gap 11.3 (7-15) meq/L BUN 14 (7-18) mg/dL Creatinine 0.88 (0.51-1.17) mg/dL Est Cr Clr Drug Dosing 57.73 mL/min Estimated GFR (MDRD) > 60 mL/min Glucose 80 (70-99) mg/dL Calcium 8.8 (8.5-10.1) mg/dL Magnesium 1.4 L (1.8-2.4) mg/dL Total Bilirubin 0.6 (0.2-1.0) mg/dL AST 39 H (15-37) U/L ALT 30 (12-78) U/L Alkaline Phosphatase 107 (46-116) IU/L Creatine Kinase 373 H (26-308) U/L Total Protein 6.5 (6.4-8.2) g/dL Albumin 2.8 L (3.4-5.0) g/dL Specimen Type Urinvoid Urine Color Yellow Urine Appearance Slightly cloudy Urine pH 6.0 (5.0-9.0) Ur Specific [place] >= 1.030 (1.005-1.030) Urine Protein 30 H (NEGATIVE) mg/dL Urine Glucose (UA) Negative (NEGATIVE) mg/dL Urine Ketones 15 H (NEGATIVE) mg/dL Urine Occult Blood Moderate H (NEGATIVE) Urine Nitrite Negative (NEGATIVE) Urine Bilirubin Moderate H (NEGATIVE) Urine Urobilinogen 0.2 (0.2-1.0) E.U./dL Ur Leukocyte Esterase Negative (NEGATIVE) Urine RBC 0-5 /HPF Urine WBC 0-5 /HPF Ur Epithelial Cells Many H /LPF Urine Bacteria Few (NONE TO FEW) /HPF Urine Mucus Few H (NEGATIVE) /LPF Meds: Medications Generic Name Dose Route Start Last Admin Trade Name Freq PRN Reason Stop Dose Admin Acetaminophen 650 mg 03/29/21 14:30 Acetaminophen 325 Mg Tab PO Q4H PRN Pain Atorvastatin Calcium 20 mg 03/30/21 08:00 Atorvastatin 10 Mg Tab PO DAILY [facility] Cetirizine HCl 10 mg 03/30/21 08:00 Cetirizine 10 Mg Tab PO DAILY [facility] Cholecalciferol 50 mcg 03/30/21 08:00 Cholecalciferol (Vitamin D3) 25 Mcg Tab PO DAILY [facility] Folic Acid 1 mg 03/30/21 08:00 Folic Acid 1 Mg Tab PO DAILY [facility] Gabapentin 200 mg 03/29/21 20:00 Gabapentin 100 Mg Cap PO BEDTIME [facility] Magnesium Sulfate/Dextrose 1 100 mls @ 100 mls/hr 03/29/21 14:11 gm/ Premix IV 03/29/21 15:10 ONETIME ONE Sodium Chloride 1,000 mls @ 75 mls/hr 03/29/21 14:15 Normal Saline IV ASDIRECTED [facility] Ketorolac Tromethamine 15 mg 03/29/21 15:00 Ketorolac 15 Mg/Ml Sdv IVPUSH 04/03/21 15:01 Q6H PRN Pain Miscellaneous Information 1 ea 03/30/21 08:00 Remove Patch Nicotine TRDERM DAILY [facility] Nicotine 21 mg 03/29/21 14:15 Nicotine 21 Mg/24 Hr Patch TRDERM DAILY [facility] Sodium Chloride 10 ml 03/29/21 10:52 03/29/21 10:53 Sodium Chloride 0.9% 10 Ml Syringe FLUSH 10 ml ASDIRECTED PRN Administration Keep Vein Open Discontinued Medications Generic Name Dose Route Start Last Admin Trade Name Freq PRN Reason Stop Dose Admin Acetaminophen 1,000 mg 03/29/21 10:33 03/29/21 10:57 Acetaminophen 500 Mg Tab PO 03/29/21 10:34 1,000 mg ONETIME ONE Administration Magnesium Sulfate/Dextrose 1 100 mls @ 100 mls/hr 03/29/21 10:33 03/29/21 10:50 gm/ Premix IV 03/29/21 11:32 100 mls/hr ONETIME ONE Administration Magnesium Sulfate/Dextrose 1 100 mls @ 100 mls/hr 03/29/21 11:45 03/29/21 11:50 gm/ Premix IV 03/29/21 12:44 100 mls/hr ONETIME ONE Administration - Re-Assessments/Exams Free Text/Narrative Re-Assessment/Exam: Labs/noncontrast chest CT and plain films of left hand and right knee obtained. Radiology felt there was possible anterior fracture of left 6th rib. Patient very osteopenic and difficult to fully assess the potential for other fractures. No obvious acute changes knee film. Noted to have nondisplaced transverse fracture proximal first metacarpal left hand. Patient given food tray as she had nothing to eat since last night. Tylenol improved pain. Concern for her wellbeing at home as she lives alone and uses walker. Mobility impacted by broken hand/rib and sore knee. Nursing noted that patient required a significant amount of assistance with any transfers and is not able to even pull own pants up or down. Will admit observation here in [place] as [facility] has no room for her at their facility at this time. [facility] may be able to have patient transferred to their facility over the next few days depending on room availability. Will consult PT/OT and have them assess patient. 03/29/21 14:30 Mild elevation of CK. Mag low at 1.4 IV replacement therapy initiated in ER. Departure - Departure Time of Disposition: 14:00 Disposition: Refer to Observation Condition: Good Clinical Impression: Hypomagnesemia Fracture of metacarpal bone Qualifiers: Encounter type: initial encounter Metacarpal bone: first Fracture type: closed Metacarpal location: base Fracture morphology: unspecified fracture morphology Fracture alignment: nondisplaced Laterality: left Qualified Code(s): S62.235A - Other nondisplaced fracture of base of first metacarpal bone, left hand, initial encounter for closed fracture Fall at home Qualifiers: Encounter type: initial encounter Qualified Code(s): W19.XXXA - Unspecified fall, initial encounter Suspected fracture of rib of right side Qualifiers: Fracture type: closed Qualified Code(s): R29.898 - Other symptoms and signs involving the musculoskeletal system Right knee injury Qualifiers: Encounter type: initial encounter Qualified Code(s): S89.91XA - Unspecified injury of right lower leg, initial encounter - Discharge Information Sepsis Event Note (ED) - Focused Exam Vital Signs: Vital Signs Temp Pulse Resp BP Pulse Ox 03/29/21 11:30 84 18 148/64 H 99 03/29/21 10:45 36.7 C 80 18 165/82 H 100 03/29/21 10:17 37.1 C 85 20 142/76 H 99 03/29/21 09:20 37.3 C 90 20 158/103 H 95 - Problem List & Annotations (1) Fall at home SNOMED Code(s): 68414629 Code(s): W19.XXXA - UNSPECIFIED FALL, INITIAL ENCOUNTER; Y92.009 - UNSP PLACE IN UNSP NON-INSTITUT (PRIVATE) RESIDENCE PLACE Status: Acute Priority: High Current Visit: Yes Onset Date: 03/28/21 Annotation/Comment:: Fall at home secondary to episode of dizzness. Spent night on cushions on floor. Able to reach phone and call for assistanct this AM Qualifiers: Encounter type: initial encounter Qualified Code(s): W19.XXXA - Unspecified fall, initial encounter; Y92.009 - Unspecified place in unspecified non- institutional (private) residence as the place of occurrence of the external cause (2) Fracture of metacarpal bone SNOMED Code(s): 067701679 Code(s): S62.309A - UNSP FRACTURE OF UNSP METACARPAL BONE, INIT FOR CLOS FX Status: Acute Priority: Low Current Visit: Yes Annotation/Comment:: Fracture of proximaly portion first metacarpal left hand. Discussed fracture with /[facility]. He recommended follow up with him/partner at clinic next week. Thumb Spica splint placed on patient while in ED Qualifiers: Encounter type: initial encounter Metacarpal bone: first Fracture type: closed Metacarpal location: base Fracture morphology: unspecified fracture morphology Fracture alignment: nondisplaced Laterality: left Qualified Code(s): S62.235A - Other nondisplaced fracture of base of first metacarpal bone, left hand, initial encounter for closed fracture (3) Suspected fracture of rib of right side SNOMED Code(s): 60477302 Code(s): R29.898 - OTH SYMPTOMS AND SIGNS INVOLVING THE MUSCULOSKELETAL SYSTEM Status: Acute Priority: Medium Current Visit: Yes Annotation/Comment:: Suspected acute right rib fracture #6 on right. Radiology had difficulty with the study due to degree of Osteopenia. May have additional fractures. Consider new CT in 10 days if further evaluation is needed. Qualifiers: Fracture type: closed Qualified Code(s): R29.898 - Other symptoms and signs involving the musculoskeletal system (4) Hypomagnesemia SNOMED Code(s): 873500443 Code(s): E83.42 - HYPOMAGNESEMIA Status: Chronic Priority: Medium Current Visit: Yes Annotation/Comment:: Has had low Mag in past. Significantly low in ER. IV replacement with normal level noted today. (5) Dizziness of unknown etiology SNOMED Code(s): 247427518 Code(s): R42 - DIZZINESS AND GIDDINESS Status: Chronic Priority: Medium Current Visit: Yes Annotation/Comment:: Has been extensively worked up over the past year per patient, including head scans. Was not told she was a candidate for PT treatment. (6) Right knee injury SNOMED Code(s): 361454415 Code(s): S89.91XA - UNSPECIFIED INJURY OF RIGHT LOWER LEG, INITIAL ENCOUNTER Status: Acute Priority: Low Current Visit: Yes Annotation/Comment:: Tenderness right knee. No fracture noted on xray. No swelling/instability noted on exam. Qualifiers: Encounter type: initial encounter Qualified Code(s): S89.91XA - Unspecified injury of right lower leg, initial encounter (7) Hypertensive heart disease SNOMED Code(s): 91750978 Code(s): I11.9 - HYPERTENSIVE HEART DISEASE WITHOUT HEART FAILURE Status: Chronic Priority: Medium Current Visit: Yes Annotation/Comment:: Initially elevated in ER. Significantly improved. Observe trends. [facility] said [facility]. Qualifiers: Heart failure presence: unspecified whether heart failure present Qualified Code(s): I11.9 - Hypertensive heart disease without heart failure (8) Anemia SNOMED Code(s): 092204152 Code(s): D64.9 - ANEMIA, UNSPECIFIED Status: Chronic Priority: Medium Current Visit: No Annotation/Comment:: Hgb 11.5. Improved from last visit. Patient to continue workup for this at [facility] and with her primary provider. Qualifiers: Anemia type: unspecified type Qualified Code(s): D64.9 - Anemia, unspecified (9) Hyperlipidemia SNOMED Code(s): 04753651 Code(s): E78.5 - HYPERLIPIDEMIA, UNSPECIFIED Status: Chronic Priority: Low Current Visit: No Annotation/Comment:: under therapy Qualifiers: Hyperlipidemia type: unspecified Qualified Code(s): E78.5 - Hyperlipidemia, unspecified (10) Tobacco use SNOMED Code(s): 852021920 Code(s): Z72.0 - TOBACCO USE Status: Chronic Priority: Low Current V isit: No Annotation/Comment:: jail cigarette use. Does not require medical therapy at this point in time for COPD. - Problem List Review Problem List Initiated/Reviewed/Updated: Yes - My Orders Last 24 Hours: My Active Orders 03/29/21 09:44 Chest wo Cont [CT] Stat 03/29/21 09:45 Hand Comp Min 3V Lt [CR] Stat 03/29/21 09:46 Knee 3V Rt [CR] Stat 03/29/21 10:52 Sodium Chloride 0.9% [Saline Flush] 10 ml FLUSH ASDIRECTED PRN 03/29/21 10:53 Saline Lock Insert [OM.PC] Routine - Assessment/Plan Admission H&P: Please use this note as an admission H&P Last 24 Hours: My Active Orders 03/29/21 09:44 Chest wo Cont [CT] Stat 03/29/21 09:45 Hand Comp Min 3V Lt [CR] Stat 03/29/21 09:46 Knee 3V Rt [CR] Stat 03/29/21 10:52 Sodium Chloride 0.9% [Saline Flush] 10 ml FLUSH ASDIRECTED PRN 03/29/21 10:53 Saline Lock Insert [OM.PC] Routine Assessment:: as above Plan: as above. Anticipate 2 day stay for observation/PT and OT evaluation. May need to consider transfer to [facility] for longer term stay if unable to perform ADLs safely.
[2021-03-29 10:20] LABS: ANION GAP 11.3 meq/L (7-15); CHLORIDE,CL 107 mmol/L (98-107); SODIUM,NA 142 mmol/L (136-145)
[2021-03-29] MEDS ORDERED: Acetaminophen 500 MG Tab PO ONE (10:33)
[2021-03-29] MEDS: Sodium Chloride 0.9% 10 ML Syringe FLUSH PRN (10:53)
[2021-03-29] MEDS ORDERED: Sodium Chloride 0.9% 1,000 ML IV SCH (14:15)
[2021-03-29] MEDS: Nicotine 21 MG/24 Hr Patch TRDERM SCH (15:08)
[2021-03-29] MEDS: Gabapentin 100 MG Cap PO SCH (19:09)
[2021-03-30] MEDS: Ketorolac 15 MG/ML SDV IVPUSH PRN ×2 (01:36→08:49)
[2021-03-30] MEDS: Acetaminophen 325 MG Tab PO PRN ×4 (01:37→22:41)
[2021-03-30] MEDS: Sodium Chloride 0.9% 10 ML Syringe FLUSH PRN (01:37)
[2021-03-30 07:26] LABS: ANION GAP 9.5 meq/L (7-15)
[2021-03-30] MEDS: Cholecalciferol (Vitamin D3) 25 MCG Tab PO SCH (08:48)
[2021-03-30] MEDS: Folic Acid 1 MG Tab PO SCH (08:48)
[2021-03-30] MEDS: atorvaSTATin 10 MG Tab PO SCH (08:48)
[2021-03-30] MEDS: Cetirizine 10 MG Tab PO SCH (08:49)
[2021-03-30] MEDS: Nicotine 21 MG/24 Hr Patch TRDERM SCH (08:49)
[2021-03-30] MEDS: Magnesium Oxide 400 MG Tab PO SCH ×2 (10:17→17:24)
--- NOTE | 2021-03-30 11:45 | PCM.PN ---
- General Info Date of Service: 03/30/21 Admission Dx/Problem (Free Text): Fall with fractured metacarpal/knee contusion in patient with pre-existing limited mobility. Suspected fractured right 6th rib. Admitted observation for assistance with ADLs/PT and OT eval/pain control. Subjective Update: Patient has no new complaints. Reports good pain relief with Tylenol. Functional Status: Reports: Pain Controlled, Tolerating Diet, Ambulating (with assistance), Urinating Pain Score: 3 - Review of Systems General: Reports: No Symptoms HEENT: Reports: No Symptoms Pulmonary: Reports: Cough (chronic smoker's cough/unchanged), Wheezing (chronic/COPD) Cardiovascular: Reports: No Symptoms Gastrointestinal: Reports: No Symptoms Genitourinary: Reports: No Symptoms Musculoskeletal: Reports: Other (left hand pain, right knee pain) Skin: Reports: Bruising Neurological: Reports: Dizziness (chronic, improved today), Difficulty Walking. Denies: Confusion, Headache, Seizure, Syncope, Change in Speech Psychiatric: Reports: No Symptoms - Patient Data Vitals - Most Recent: Last Vital Signs Temp 36.8 C 03/30/21 08:00 Pulse 73 03/30/21 08:00 Resp 18 03/30/21 08:00 BP 143/78 H 03/30/21 08:00 Pulse Ox 95 03/30/21 08:00 Weight - Most Recent: 62.46 kg I&O - Last 24 Hours: Intake & Output 03/29/21 03/30/21 03/30/21 22:59 06:59 14:59 Intake Total 100 1000 360 Balance 100 1000 360 Lab Results Last 24 Hours: Laboratory Results - last 24 hr 03/29/21 03/30/21 03/30/21 Range/Units 16:55 06:58 06:58 WBC 3.4 L (4.0-10.2) K/uL RBC 2.76 L (3.77-5.09) M/uL Hgb 9.2 L D (11.7-15.5) g/dL Hct 28.1 L (34.0-46.0) % MCV 101.8 H (84.0-98.0) fL MCH 33.3 (28.2-33.3) pg MCHC 32.7 (31.7-36.0) g/dL RDW 14.9 H (11.2-14.1) % Plt Count 175 (150-350) K/uL Neut % (Auto) 36.3 L (45.0-80.0) % Lymph % (Auto) 45.1 (10.0-50.0) % [place] % (Auto) 12.7 (2.0-14.0) % Eos % (Auto) 5.0 (0.0-5.0) % Baso % (Auto) 0.9 (0.0-2.0) % Neut # (Auto) 1.23 L (1.40-7.00) K/uL Lymph # (Auto) 1.53 (0.50-3.50) K/uL [place] # (Auto) 0.43 (0.00-1.00) K/uL Eos # (Auto) 0.17 (0.00-0.50) K/uL Baso # (Auto) 0.03 (0.00-0.20) K/uL Sodium 138 (136-145) mmol/L Potassium 3.9 (3.5-5.1) mmol/L Chloride 108 H (98-107) mmol/L Carbon Dioxide 24.4 (21.0-32.0) mmol/L Anion Gap 9.5 (7-15) meq/L BUN 15 (7-18) mg/dL Creatinine 0.94 (0.51-1.17) mg/dL Est Cr Clr Drug Dosing 54.04 mL/min Estimated GFR (MDRD) 60 mL/min Glucose 91 (70-99) mg/dL Calcium 8.2 L (8.5-10.1) mg/dL Magnesium 1.8 (1.8-2.4) mg/dL Creatine Kinase 134 (26-308) U/L SARS-CoV-2 Ag (Rapid) Negative (NEGATIVE) Med Orders - Current: Current Medications Acetaminophen (Acetaminophen 325 Mg Tab) 650 mg PO Q4H PRN PRN Reason: Pain Last Admin: 03/30/21 08:22 Dose: 650 mg Documented by: Atorvastatin Calcium (Atorvastatin 10 Mg Tab) 20 mg PO DAILY [facility] Last Admin: 03/30/21 08:48 Dose: 20 mg Documented by: Cetirizine HCl (Cetirizine 10 Mg Tab) 10 mg PO DAILY [facility] Last Admin: 03/30/21 08:49 Dose: 10 mg Documented by: Cholecalciferol (Cholecalciferol (Vitamin D3) 25 Mcg Tab) 50 mcg PO DAILY [facility] Last Admin: 03/30/21 08:48 Dose: 50 mcg Documented by: Folic Acid (Folic Acid 1 Mg Tab) 1 mg PO DAILY [facility] Last Admin: 03/30/21 08:48 Dose: 1 mg Documented by: Gabapentin (Gabapentin 100 Mg Cap) 200 mg PO BEDTIME [facility] Last Admin: 03/29/21 19:09 Dose: 200 mg Documented by: Sodium Chloride (Normal Saline) 1,000 mls @ 75 mls/hr IV ASDIRECTED [facility] Last Admin: 03/29/21 16:18 Dose: 75 mls/hr Documented by: Ketorolac Tromethamine (Ketorolac 15 Mg/Ml Sdv) 15 mg IVPUSH Q6H PRN PRN Reason: Pain Stop: 04/03/21 15:01 Last Admin: 03/30/21 08:49 Dose: 15 mg Documented by: Magnesium Oxide (Magnesium Oxide 400 Mg Tab) 800 mg PO BID [facility] Last Admin: 03/30/21 10:17 Dose: 800 mg Documented by: Miscellaneous Information (Remove Patch Nicotine) 1 ea TRDERM DAILY [facility] Last Admin: 03/30/21 08:49 Dose: Not Given Documented by: Nicotine (Nicotine 21 Mg/24 Hr Patch) 21 mg TRDERM DAILY [facility] Last Admin: 03/30/21 08:49 Dose: Not Given Documented by: Sodium Chloride (Sodium Chloride 0.9% 10 Ml Syringe) 10 ml FLUSH ASDIRECTED PRN PRN Reason: Keep Vein Open Last Admin: 03/30/21 01:37 Dose: 10 ml Documented by: Discontinued Medications Acetaminophen (Acetaminophen 500 Mg Tab) 1,000 mg PO ONETIME ONE Stop: 03/29/21 10:34 Last Admin: 03/29/21 10:57 Dose: 1,000 mg Documented by: Magnesium Sulfate/Dextrose 1 (gm/ Premix) 100 mls @ 100 mls/hr IV ONETIME ONE Stop: 03/29/21 11:32 Last Admin: 03/29/21 10:50 Dose: 100 mls/hr Documented by: Magnesium Sulfate/Dextrose 1 (gm/ Premix) 100 mls @ 100 mls/hr IV ONETIME ONE Stop: 03/29/21 12:44 Last Admin: 03/29/21 11:50 Dose: 100 mls/hr Documented by: Magnesium Sulfate/Dextrose 1 (gm/ Premix) 100 mls @ 100 mls/hr IV ONETIME ONE Stop: 03/29/21 15:10 Last Admin: 03/29/21 15:08 Dose: 100 mls/hr Documented by: - Exam General: Alert, Oriented, Cooperative, No Acute Distress HEENT: Pupils Equal, Pupils Reactive, EOMI, Mucous Membr. Moist/[place] Neck: Supple Lungs: Wheezing (mild/bilat) Cardiovascular: Regular Rate, Regular Rhythm, Other (Right anterior/lower chest wall pain with palpation) GI/Abdominal Exam: Normal Bowel Sounds, Soft, Non-Tender, No Distention, Pelvis Stable (Female) Exam: Deferred Back Exam: No: CVA Tenderness (L), CVA Tenderness (R), Muscle Spasm Extremities: No Pedal Edema, Normal Capillary Refill, Other (right knee discomfort with palpation. Left hand/wrist in splint). No: Increased Warmth, Mottled, Pallor, Redness Skin: Warm, Dry Neurological: No New Focal Deficit Psy/Mental Status: Alert, Normal Affect, Normal Mood - Patient Data Lab Results Last 24 hrs: Laboratory Results - last 24 hr 03/29/21 03/30/21 03/30/21 Range/Units 16:55 06:58 06:58 WBC 3.4 L (4.0-10.2) K/uL RBC 2.76 L (3.77-5.09) M/uL Hgb 9.2 L D (11.7-15.5) g/dL Hct 28.1 L (34.0-46.0) % MCV 101.8 H (84.0-98.0) fL MCH 33.3 (28.2-33.3) pg MCHC 32.7 (31.7-36.0) g/dL RDW 14.9 H (11.2-14.1) % Plt Count 175 (150-350) K/uL Neut % (Auto) 36.3 L (45.0-80.0) % Lymph % (Auto) 45.1 (10.0-50.0) % [place] % (Auto) 12.7 (2.0-14.0) % Eos % (Auto) 5.0 (0.0-5.0) % Baso % (Auto) 0.9 (0.0-2.0) % Neut # (Auto) 1.23 L (1.40-7.00) K/uL Lymph # (Auto) 1.53 (0.50-3.50) K/uL [place] # (Auto) 0.43 (0.00-1.00) K/uL Eos # (Auto) 0.17 (0.00-0.50) K/uL Baso # (Auto) 0.03 (0.00-0.20) K/uL Sodium 138 (136-145) mmol/L Potassium 3.9 (3.5-5.1) mmol/L Chloride 108 H (98-107) mmol/L Carbon Dioxide 24.4 (21.0-32.0) mmol/L Anion Gap 9.5 (7-15) meq/L BUN 15 (7-18) mg/dL Creatinine 0.94 (0.51-1.17) mg/dL Est Cr Clr Drug Dosing 54.04 mL/min Estimated GFR (MDRD) 60 mL/min Glucose 91 (70-99) mg/dL Calcium 8.2 L (8.5-10.1) mg/dL Magnesium 1.8 (1.8-2.4) mg/dL Creatine Kinase 134 (26-308) U/L SARS-CoV-2 Ag (Rapid) Negative (NEGATIVE) Result Diagrams: 03/30/21 06:58 03/30/21 06:58 Sepsis Event Note - Evaluation Sepsis Screening Result: No Definite Risk - Focused Exam Vital Signs: Vital Signs Temp Pulse Resp BP Pulse Ox 03/30/21 08:00 36.8 C 73 18 143/78 H 95 03/30/21 01:48 37.1 C 84 14 143/78 H 94 L - Problem List & Annotations (1) Fall at home SNOMED Code(s): 88528510 Code(s): W19.XXXA - UNSPECIFIED FALL, INITIAL ENCOUNTER; Y92.009 - UNSP PLACE [facility] Status: Acute Priority: High Current Visit: Yes Onset Date: 03/28/21 Qualifiers: Encounter type: initial encounter Qualified Code(s): W19.XXXA - Unspecified fall, initial encounter; Y92.009 - Unspecified place in unspecified non- institutional (private) residence as the place of occurrence of the external cause Annotation/Comment:: Fall at home secondary to episode of dizziness. Spent night on cushions on floor. Able to reach phone and call for assistance following morning. (2) Fracture of metacarpal bone SNOMED Code(s): 510561584 Code(s): S62.309A - UNSP FRACTURE OF UNSP METACARPAL BONE, INIT FOR CLOS FX Status: Acute Priority: Medium Current Visit: Yes Onset Date: 03/28/21 Qualifiers: Encounter type: initial encounter Metacarpal bone: first Fracture type: closed Metacarpal location: base Fracture morphology: unspecified fracture morphology Fracture alignment: nondisplaced Laterality: left Qualified Code(s): S62.235A - Other nondisplaced fracture of base of first metacarpal bone, left hand, initial encounter for closed fracture Annotation/Comment:: Fracture of proximaly portion first metacarpal left hand. Discussed fracture with /[facility]. He recommended follow up with him/partner at clinic next week. Thumb Spica splint placed on patient while in ED (3) Suspected fracture of rib of right side SNOMED Code(s): 04262707 Code(s): R29.898 - OTH SYMPTOMS AND SIGNS INVOLVING THE MUSCULOSKELETAL SYSTEM Status: Acute Priority: Medium Current Visit: Yes Qualifiers: Fracture type: closed Qualified Code(s): R29.898 - Other symptoms and signs involving the musculoskeletal system Annotation/Comment:: Suspected acute right rib fracture #6 on right. Radiology had difficulty with the study due to degree of Osteopenia. May have additional fractures. Consider new CT in 10 days if further evaluation is needed. (4) Hypomagnesemia SNOMED Code(s): 818329743 Code(s): E83.42 - HYPOMAGNESEMIA Status: Chronic Priority: Medium Current Visit: Yes Annotation/Comment:: Has had low Mag in past. Significantly low in ER. IV replacement with normal level noted today. Will have patient increase to BID Mag 500mg at time of discharge. Was advised to take evening dose of Mag 2 hours apart from Gabapentin (5) Dizziness of unknown etiology SNOMED Code(s): 292738022 Code(s): R42 - DIZZINESS AND GIDDINESS Status: Chronic Priority: Medium Current Visit: Yes Annotation/Comment:: Has been extensively worked up over the past year per patient, including head scans. Was not told she was a candidate for PT treatment. Is feeling much better today. (6) Right knee injury SNOMED Code(s): 457111204 Code(s): S89.91XA - UNSPECIFIED INJURY OF RIGHT LOWER LEG, INITIAL ENCOUNTER Status: Acute Priority: Low Current Visit: Yes Qualifiers: Encounter type: initial encounter Qualified Code(s): S89.91XA - Unspecified injury of right lower leg, initial encounter Annotation/Comment:: Tenderness right knee. No fracture noted on xray. No swelling/instability noted on exam. (7) Hypertensive heart disease SNOMED Code(s): 97954899 Code(s): I11.9 - HYPERTENSIVE HEART DISEASE WITHOUT HEART FAILURE Status: Chronic Priority: Medium Current Visit: Yes Qualifiers: Heart failure presence: unspecified whether heart failure present Qualified Code(s): I11.9 - Hypertensive heart disease without heart failure Annotation/Comment:: Initially elevated in ER. Significantly improved. Observe trends. [facility] said [facility]. (8) Anemia SNOMED Code(s): 659909401 Code(s): D64.9 - ANEMIA, UNSPECIFIED Status: Chronic Priority: Medium Current Visit: No Qualifiers: Anemia type: unspecified type Qualified Code(s): D64.9 - Anemia, unspecified Annotation/Comment:: Hgb 11.5. Improved from last visit. Patient to continue workup for this at [facility] and with her primary provider. (9) Hyperlipidemia SNOMED Code(s): 53737803 Code(s): E78.5 - HYPERLIPIDEMIA, UNSPECIFIED Status: Chronic Priority: Low Current Visit: No Qualifiers: Hyperlipidemia type: unspecified Qualified Code(s): E78.5 - Hyperlipidemia, unspecified Annotation/Comment:: under therapy (10) Tobacco use SNOMED Code(s): 529381849 Code(s): Z72.0 - TOBACCO USE Status: Chronic Priority: Low Current Visit: No Annotation/Comment:: jail cigarette use. Does not require medical therapy at this point in time for COPD. - Problem List Review Problem List Initiated/Reviewed/Updated: Yes - My Orders Last 24 Hours: My Active Orders 03/29/21 10:52 Sodium Chloride 0.9% [Saline Flush] 10 ml FLUSH ASDIRECTED PRN 03/29/21 10:53 Saline Lock Insert [OM.PC] Routine 03/29/21 14:06 Patient Status [ADT] Routine Height and Weight [RC] UPON Up With Assistance [RC] ASDIRECTED Vital Signs [RC] 02,08,14,20 DVT/VTE Prophylaxis Reflex [OM.PC] Routine Resuscitation Status Routine 03/29/21 14:07 Intake and Output [RC] 06,18 03/29/21 14:08 Oxygen Therapy [RC] PRN Pulse Oximetry [RC] PRN 03/29/21 14:09 Antiembolic Devices [RC] 08,20 VTE/DVT Education [RC] PER UNIT ROUTINE Consult to Physical Therapy [PT Evaluation and Treatment] [CONS] Routine OT Evaluation and Treatment [CONS] Routine 03/29/21 14:15 Nicotine [Habitrol] 21 mg TRDERM DAILY Sodium Chloride 0.9% [Normal Saline] 1,000 ml IV ASDIRECTED 03/29/21 14:30 Acetaminophen [TylenoL] 650 mg PO Q4H PRN 03/29/21 15:00 Ketorolac [Toradol] 15 mg IVPUSH Q6H PRN 03/29/21 Dinner Regular Diet [DIET] 03/29/21 20:00 Gabapentin [Neurontin] 200 mg PO BEDTIME 03/30/21 08:00 Cetirizine [ZyrTEC] 10 mg PO DAILY Cholecalciferol (Vitamin D3) [Vitamin D3] 50 mcg PO DAILY Folic Acid 1 mg PO DAILY Remove Patch 1 ea TRDERM DAILY atorvaSTATin [Lipitor] 20 mg PO DAILY 03/30/21 09:38 Magnesium Oxide 800 mg PO BID - Assessment Assessment:: as above - Plan Plan:: as above. Anticipate patient may be able to be discharged home tomorrow if PT/OT feel that she can succeed at home.
[2021-03-30] MEDS: Gabapentin 100 MG Cap PO SCH (20:25)
[2021-03-31] MEDS: Ketorolac 15 MG/ML SDV IVPUSH PRN (00:39)
[2021-03-31] MEDS: Folic Acid 1 MG Tab PO SCH (07:40)
[2021-03-31] MEDS: Nicotine 21 MG/24 Hr Patch TRDERM SCH ×2 (07:40→07:41)
[2021-03-31] MEDS: Cetirizine 10 MG Tab PO SCH (07:40)
[2021-03-31] MEDS: Cholecalciferol (Vitamin D3) 25 MCG Tab PO SCH (07:40)
[2021-03-31] MEDS: atorvaSTATin 10 MG Tab PO SCH (07:40)
[2021-03-31] MEDS: Magnesium Oxide 400 MG Tab PO SCH (07:40)
[2021-03-31 08:09] LABS: ANION GAP 8.8 meq/L (7-15)
[2021-03-31] MEDS: Acetaminophen 325 MG Tab PO PRN (09:30)
--- NOTE | 2021-03-31 10:07 | PCM.DCSUM1 ---
Discharge Summary - Hospital Course Diagnosis: Stroke: No - Discharge Data Discharge Date: 03/31/21 Discharge Disposition: Home, Self-Care 01 Condition: Good - Referral to Home Health Primary Care Physician: PCP Not In Area - Discharge Diagnosis/Problem(s) (1) Fall at home SNOMED Code(s): 21200174 ICD Code: W19.XXXA - UNSPECIFIED FALL, INITIAL ENCOUNTER; Y92.009 - UNSP PLACE IN UNSP NON-INSTITUT (PRIVATE) RESIDENCE PLACE Status: Acute Priority: High Onset Date: 03/28/21 Problem Details: Patient has some reoccurring history of dizziness and falls at home. I wonder if this is somewhat not due to chronic alcohol use disorder and or multifactorial in nature. She has had quite an extensive work-up which has been negative. She has met with physical therapy and Occupational Therapy she is cleared to go home. She will be using a an assistive walker at home to help. Discussed how to prevent falls at home. Qualifiers: Encounter type: initial encounter Qualified Code(s): W19.XXXA - Unspecified fall, initial encounter; Y92.009 - Unspecified place in unspecified non- institutional (private) residence as the place of occurrence of the external cause (2) Fracture of metacarpal bone SNOMED Code(s): 443702987 ICD Code: S62.309A - UNSP FRACTURE OF UNSP METACARPAL BONE, INIT FOR CLOS FX Status: Acute Priority: Medium Onset Date: 03/28/21 Problem Details: Fracture of proximaly portion first metacarpal left hand. Follow with hand surgery in [place]. Appointment already made. Thumb spica splint in place. CMS normal. Tylenol for pain. Quite a bit of dependent edema and bruising. Qualifiers: Encounter type: initial encounter Metacarpal bone: first Fracture type: closed Metacarpal location: base Fracture morphology: unspecified fracture morphology Fracture alignment: nondisplaced Laterality: left Qualified Code(s): S62.235A - Other nondisplaced fracture of base of first metacarpal bone, left hand, initial encounter for closed fracture (3) Right knee injury SNOMED Code(s): 964926896 ICD Code: S89.91XA - UNSPECIFIED INJURY OF RIGHT LOWER LEG, INITIAL ENCOUNTER Status: Acute Priority: Low Problem Details: Tenderness right knee. No fracture noted on xray. No swelling/instability noted on exam. Much improved continue with assistance devices at home for ambulation. Qualifiers: Encounter type: initial encounter Qualified Code(s): S89.91XA - Unspecified injury of right lower leg, initial encounter (4) Suspected fracture of rib of right side SNOMED Code(s): 60943045 ICD Code: R29.898 - OTH SYMPTOMS AND SIGNS INVOLVING THE MUSCULOSKELETAL SYSTEM Status: Acute Priority: Medium Problem Details: Suspected acute right rib fracture #6 on right. Continue to monitor exam negative today. Tylenol for pain. IS at home to prophylaxis pneumonia. Radiology had difficulty with the study due to degree of Osteopenia. May have additional fractures. Consider new CT in 10 days if further evaluation is needed. Qualifiers: Fracture type: closed Qualified Code(s): R29.898 - Other symptoms and signs involving the musculoskeletal system (5) Dizziness of unknown etiology SNOMED Code(s): 105953393 ICD Code: R42 - DIZZINESS AND GIDDINESS Status: Chronic Priority: Medium Problem Details: Has been extensively worked up over the past year per patient, including head scans. Could be multifactorial in nature. No episodes while in the hospital. Although concerns for chronic alcohol use disorder. Also has anemia and hypomag. Assistive devices at home per PT and follow up in the clinic. (6) Hypertensive heart disease SNOMED Code(s): 94650396 ICD Code: I11.9 - HYPERTENSIVE HEART DISEASE WITHOUT HEART FAILURE Status: Chronic Priority: Medium Problem Details: 131/72 blood pressure today. Continue previous therapies. Follow up with PCP. Qualifiers: Heart failure presence: unspecified whether heart failure present Qualified Code(s): I11.9 - Hypertensive heart disease without heart failure (7) Hypomagnesemia SNOMED Code(s): 172418533 ICD Code: E83.42 - HYPOMAGNESEMIA Status: Chronic Priority: Medium Problem Details: Mag 1.4 admission 1.8 today. after oral and Iv replacement. Will continue her magnesium at home 800mg po bid and follow up in the clinic for recheck. (8) Hypokalemia SNOMED Code(s): 27227423 ICD Code: E87.6 - HYPOKALEMIA Status: Acute Priority: Low Problem Details: 3.7 upon admission 4.4. Today. Will continue potassium supplementation at home and recheck in the clinic. (9) Anemia SNOMED Code(s): 830736653 ICD Code: D64.9 - ANEMIA, UNSPECIFIED Status: Chronic Priority: Medium Problem Details: Hemoglobin on admission was 11.5, down to 9.7. Her iron is 27, TIBC is 170. Vitamin B12 is 456. She has not had a colonoscopy in 6 years. She has had some benign polyps in the past. No black tarry stools. We will start her on iron supplementation daily. Have her follow-up with primary care for consideration of colonoscopy. 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 Does not require medical therapy at this point in time for COPD. (12) Alcohol use disorder SNOMED Code(s): 3305577 ICD Code: BLK3207 - Status: Acute Problem Details: Patient does admit to every other day drinking of large hard alcohol. She does not have any withdrawal symptoms today. She does have a macrocytic anemia as well as hypomagnesemia and borderline hypokalemia which are all consistent with long- term alcohol usage. This could be an aspect of her dizziness and her falls at home. She is uninterested in treatment at this time. We will send her home with potassium as well as magnesium and I will also add thiamine. Follow-up with primary care and get a CD evaluation. - Patient Summary/Data Consults: Consultations 03/29/21 14:09 Consult to Physical Therapy [PT Evaluation and Treatment] [CONS] Routine OT Evaluation and Treatment [CONS] Routine Hospital Course: This patient was placed into the hospital under observation for the last 2 days following a fall at home. This patient has a chronic history of recurrent dizziness that she has had quite extensively worked up without any findings. She fell at home 03-29-21 and subsequently was found to have possibly a right sixth rib fracture on the right side without any hemopneumothorax as well as a left proximal thumb metacarpal nondisplaced fracture that has had a splint in place. She has some difficulty getting around at home. She was assessed by physical therapy and Occupational Therapy and she is going to use an assistive walker to help with her at home. She does admit to alcohol usage about every 2 to 3 days which she relates 5-8 shots of hard alcohol at a time. She never has any withdrawal type symptoms. She is uninterested in alcohol assessment or treatment at this time. She was noted to be mildly hypomagnesemic she was replaced aggressively in the hospital and she is normal magnesium upon discharge. Her pain is tolerated well with Tylenol. She does not want anything else for pain. Follow-up primary care has been set up as well as hand surgery due to the metacarpal fracture. She is also noted to be iron deficiency anemia. She will be started on iron. Her last colonoscopy was about 6 years ago where she had multiple benign polyps that were removed. Primary care to follow. Her hemoglobin on discharge was 9.7. She is also started on thiamine continue on magnesium. Her episodes of dizziness that have been worked up extensively previously could be multifactorial as well as problems with her electrolytes anemia and her chronic alcohol use disorder. This is to be followed up evaluated in the primary care setting. She will be followed by home health at home. - Patient Instructions Diet: Regular Diet as Tolerated, Drink 8-10+ Glasses/Day Activity: Apply Ice Other/Special Instructions: Make sure and eat regular small meals. Ice to the hand at least 4 times a day. Keep hand elevated as much as possible above the level of your heart. Splint on at all times. Do not get the splint wet. Tylenol as needed for pain. Continue all other previous medications. Except change in magnesium. Magnesium 800mg by mouth twice daily. RX sent to [facility] have recheck levels in the clinic in follow up. Make sure and not take with the gabapentin or iron within 2 hours. Thiamine 1 tablet daily. Iron supplementation 1 tablet daily make sure and do not take withint 2 hours of your magnesium. See hand surgery at [facility] in [place]. Appointment has been made for you on 04/05/21 at 1:20 in [place]. Follow up and establish primary care here in [place] we assisted with this today in the hospital. Consider chemical dependency evaluation in the primary care setting. Also an Ifod or stool evaluation for chronic low volume blood loss, or colonoscopy. Incentive spirometry complete every 2 hours at home and as much as possible to prevent pneumonia. Home health will follow up with you as well to help at home. Recheck if any concerns. - Discharge Plan *PRESCRIPTION DRUG MONITORING PROGRAM REVIEWED*: Not Applicable *COPY OF PRESCRIPTION DRUG MONITORING REPORT IN PATIENT JESSICA: Not Applicable Prescriptions/Med Rec: Ferrous Sulfate [Iron] 325 mg PO DAILY #90 tablet Magnesium Oxide 800 mg PO BID #30 tablet Thiamine [Vitamin B-1] 100 mg PO DAILY #30 tablet Home Medications: Home Meds atorvaSTATin Calcium [Atorvastatin Calcium] 20 mg PO DAILY 10/29/17 [History] Acetaminophen [Tylenol] 650 mg PO Q4H PRN 12/31/18 [History] Cetirizine HCl 10 mg PO DAILY 12/31/18 [History] Cholecalciferol (Vitamin D3) [Vitamin D3] 2,000 unit PO DAILY 12/31/18 [History] Cyanocobalamin (Vitamin B12) [Vitamin B12] 1,000 mcg PO ASDIRECTED 12/31/18 [History] Folic Acid 1 mg PO DAILY 12/31/18 [History] Gabapentin [Neurontin] 200 mg PO BEDTIME 12/11/20 [History] Ibuprofen 600 mg PO BID PRN 12/11/20 [History] Ferrous Sulfate [Iron] 325 mg PO DAILY #90 tablet 03/31/21 [Rx] Magnesium Oxide 800 mg PO BID #30 tablet 03/31/21 [Rx] Thiamine [Vitamin B-1] 100 mg PO DAILY #30 tablet 03/31/21 [Rx] Patient Handouts: Anemia, Hypomagnesemia, Metacarpal Fracture, [id number], Dizziness, [id number] Forms: ED Department Discharge Referrals: PCP,Not In Area [Primary Care Provider] - - Discharge Summary/Plan Comment DC Time >30 min.: Yes Total # of Minutes for Discharge Time: 60 minutes reviewing her chart. Working with case management for home bound plan and ensuring appropriate follow up with multiple entities. - General Info Admission Dx/Problem (Free Text: Fall with fractured metacarpal/knee contusion in patient with pre-existing limited mobility. Suspected fractured right 6th rib. Admitted observation for assistance with ADLs/PT and OT eval/pain control. Subjective Update: This is observation day 2. Patient feels quite well. Her pain is well controlled with Tylenol. She has had no weakness dizziness lightheadedness. No fever no chills. No chest pain no shortness of breath or difficulty breathing. No cough or congestion. No abdominal pain nausea or vomiting. She has been ambulating quite well with physical therapy with the use of a specific type of walker. She has noted quite a bit more swelling to her hand. Her pain is well controlled. She has no dizziness upon standing she feels very stable she is feeling good and she would like to go home. I did discuss with her also that her hemoglobin is quite low and her magnesium is low she does admit to drinking alcohol every 2 to 3 days 5-8 shots of hard alcohol at a time. No history of alcohol withdrawal. No hallucinations delusions or tremor at this time. - Patient Data Vitals - Most Recent: Last Vital Signs Temp 98.3 F 03/31/21 08:00 Pulse 66 03/31/21 08:00 Resp 20 03/31/21 08:00 BP 131/72 03/31/21 08:00 Pulse Ox 97 03/31/21 08:00 Weight - Most Recent: 147 lb 11.2 oz I&O - Last 24 hours: Intake & Output 03/30/21 03/31/21 03/31/21 22:59 06:59 14:59 Intake Total 240 500 120 Balance 240 500 120 Lab Results - Last 24 hrs: Laboratory Results - last 24 hr 03/31/21 03/31/21 Range/Units 07:27 07:27 WBC 3.6 L (4.0-10.2) K/uL RBC 2.89 L (3.77-5.09) M/uL Hgb 9.7 L (11.7-15.5) g/dL Hct 29.8 L (34.0-46.0) % MCV 103.1 H (84.0-98.0) fL MCH 33.6 H (28.2-33.3) pg MCHC 32.6 (31.7-36.0) g/dL RDW 15.0 H (11.2-14.1) % Plt Count 198 (150-350) K/uL Neut % (Auto) 44.3 L (45.0-80.0) % Lymph % (Auto) 38.4 (10.0-50.0) % [place] % (Auto) 9.8 (2.0-14.0) % Eos % (Auto) 6.7 H (0.0-5.0) % Baso % (Auto) 0.8 (0.0-2.0) % Neut # (Auto) 1.58 (1.40-7.00) K/uL Lymph # (Auto) 1.37 (0.50-3.50) K/uL [place] # (Auto) 0.35 (0.00-1.00) K/uL Eos # (Auto) 0.24 (0.00-0.50) K/uL Baso # (Auto) 0.03 (0.00-0.20) K/uL Sodium 140 (136-145) mmol/L Potassium 4.4 (3.5-5.1) mmol/L Chloride 109 H (98-107) mmol/L Carbon Dioxide 26.6 (21.0-32.0) mmol/L Anion Gap 8.8 (7-15) meq/L BUN 18 (7-18) mg/dL Creatinine 0.99 (0.51-1.17) mg/dL Est Cr Clr Drug Dosing 51.31 mL/min Estimated GFR (MDRD) 56 mL/min Glucose 85 (70-99) mg/dL Calcium 8.4 L (8.5-10.1) mg/dL Magnesium 1.8 (1.8-2.4) mg/dL Med Orders - Current: Current Medications Acetaminophen (Acetaminophen 325 Mg Tab) 650 mg PO Q4H PRN PRN Reason: Pain Last Admin: 03/31/21 09:30 Dose: 650 mg Documented by: Atorvastatin Calcium (Atorvastatin 10 Mg Tab) 20 mg PO DAILY [facility] Last Admin: 03/31/21 07:40 Dose: 20 mg Documented by: Cetirizine HCl (Cetirizine 10 Mg Tab) 10 mg PO DAILY [facility] Last Admin: 03/31/21 07:40 Dose: 10 mg Documented by: Cholecalciferol (Cholecalciferol (Vitamin D3) 25 Mcg Tab) 50 mcg PO DAILY [facility] Last Admin: 03/31/21 07:40 Dose: 50 mcg Documented by: Folic Acid (Folic Acid 1 Mg Tab) 1 mg PO DAILY [facility] Last Admin: 03/31/21 07:40 Dose: 1 mg Documented by: Gabapentin (Gabapentin 100 Mg Cap) 200 mg PO BEDTIME [facility] Last Admin: 03/30/21 20:25 Dose: 200 mg Documented by: Sodium Chloride (Normal Saline) 1,000 mls @ 75 mls/hr IV ASDIRECTED [facility] Last Admin: 03/29/21 16:18 Dose: 75 mls/hr Documented by: Ketorolac Tromethamine (Ketorolac 15 Mg/Ml Sdv) 15 mg IVPUSH Q6H PRN PRN Reason: Pain Stop: 04/03/21 15:01 Last Admin: 03/31/21 00:39 Dose: 15 mg Documented by: Magnesium Oxide (Magnesium Oxide 400 Mg Tab) 800 mg PO BID [facility] Last Admin: 03/31/21 07:40 Dose: 800 mg Documented by: Miscellaneous Information (Remove Patch Nicotine) 1 ea TRDERM DAILY [facility] Last Admin: 03/31/21 07:42 Dose: Not Given Documented by: Nicotine (Nicotine 21 Mg/24 Hr Patch) 21 mg TRDERM DAILY [facility] Last Admin: 03/31/21 07:41 Dose: Not Given Documented by: Sodium Chloride (Sodium Chloride 0.9% 10 Ml Syringe) 10 ml FLUSH ASDIRECTED PRN PRN Reason: Keep Vein Open Last Admin: 03/30/21 01:37 Dose: 10 ml Documented by: Discontinued Medications Acetaminophen (Acetaminophen 500 Mg Tab) 1,000 mg PO ONETIME ONE Stop: 03/29/21 10:34 Last Admin: 03/29/21 10:57 Dose: 1,000 mg Documented by: Magnesium Sulfate/Dextrose 1 (gm/ Premix) 100 mls @ 100 mls/hr IV ONETIME ONE Stop: 03/29/21 11:32 Last Admin: 03/29/21 10:50 Dose: 100 mls/hr Documented by: Magnesium Sulfate/Dextrose 1 (gm/ Premix) 100 mls @ 100 mls/hr IV ONETIME ONE Stop: 03/29/21 12:44 Last Admin: 03/29/21 11:50 Dose: 100 mls/hr Documented by: Magnesium Sulfate/Dextrose 1 (gm/ Premix) 100 mls @ 100 mls/hr IV ONETIME ONE Stop: 03/29/21 15:10 Last Admin: 03/29/21 15:08 Dose: 100 mls/hr Documented by: - Exam General: Reports: Alert, Oriented HEENT: Reports: Pupils Equal, Pupils Reactive, EOMI, Mucous Membr. Moist/[place] Neck: Reports: Supple Lungs: Reports: Clear to Auscultation, Normal Respiratory Effort, Other (There is no bruising swelling ecchymosis subcutaneous emphysema or flail segment to the chest.) Cardiovascular: Reports: Regular Rate, Regular Rhythm GI/Abdominal Exam: Normal Bowel Sounds, Soft, Non-Tender Back Exam: Reports: Normal Inspection, Full Range of Motion Extremities: No Pedal Edema, Normal Capillary Refill. No: Normal Inspection (Normal exam other than the splint to the left hand as a thumb spica. There is quite a bit of swelling primarily at the MCP joint down the fingers with some bruising CMS is intact appropriately. This is primarily outside of the [place] wrap.) Skin: Reports: Warm, Dry, Intact Neurological: Reports: No New Focal Deficit Psy/Mental Status: Reports: Alert, Normal Affect, Normal Mood
== END 2021-03-31 13:15 | disposition home or self-care (01) ==
LOC: LL.ED 09:05 → LL.MS 13:45
PROVIDERS: ADMIT Emergency Medicine; ATTEND Emergency Medicine
DX: R42 Dizziness and giddiness (principal); S62.235A Other nondisplaced fracture of base of first metacarpal bone, left hand, initial encounter for closed fracture; E78.00 Pure hypercholesterolemia, unspecified; I10 Essential (primary) hypertension; F17.200 Nicotine dependence, unspecified, uncomplicated; S89.91XA Unspecified injury of right lower leg, initial encounter; E83.42 Hypomagnesemia; I11.9 Hypertensive heart disease without heart failure; D64.9 Anemia, unspecified; E78.5 Hyperlipidemia, unspecified; Z88.8 Allergy status to other drugs, medicaments and biological substances; Z98.890 Other specified postprocedural states; W19.XXXA Unspecified fall, initial encounter; Z88.5 Allergy status to narcotic agent; Z79.899 Other long term (current) drug therapy
CPT/HCPCS: 29125; 36415; 71250; 73130; 73562; 80048; 80053; 81001; 82550; 82607; 83540; 83550; 83735; 85025; 87426; 96365; 96366; 96375; 96376; 97110; 97116; 97161; 97165; 97530; 97535; 99285; A9270; G0378; J1885; J3475; J7030

== ENCOUNTER 2021-04-13 10:50 | Emergency (ER) | payer MEDICARE, OTHER ==
--- NOTE | 2021-04-13 11:35 | EDM.PDOC ---
ED HPI GENERAL MEDICAL PROBLEM - General Chief Complaint: General Stated Complaint: fall Time Seen by Provider: 04/13/21 10:50 Source of Information: Reports: Patient History Limitations: Reports: No Limitations - History of Present Illness INITIAL COMMENTS - FREE TEXT/NARRATIVE: Pt. states that she struck her head when she fell and missed her seat when sitting down. Unknown LOC. Pt. complains of pain to her entire head as well as to her neck. Pt. sustained a superficial laceration to bridge of nose. Denies any injury elsewhere. Pt. has been experiencing frequent calls. This past year she has fallen and fractured her hip and on a different fall fractured her head. Pt. denies any symptoms such as chest pain, shortness of breath, or lightheadedness prior to the fall; she states she simply missed her seat when she sat down. Onset: Today Location: Reports: Head, Neck Quality: Reports: Ache, Throbbing Severity: Severe - Related Data Allergies Allergy/AdvReac Type Severity Reaction Status Date / Time aspirin Allergy Blisters Verified 04/13/21 10:52 morphine Allergy Hypotension Verified 04/13/21 10:52 Home Meds: Home Meds atorvaSTATin Calcium [Atorvastatin Calcium] 20 mg PO DAILY 10/29/17 [History] Acetaminophen [Tylenol] 650 mg PO Q4H PRN 12/31/18 [History] Cetirizine HCl 10 mg PO DAILY 12/31/18 [History] Cholecalciferol (Vitamin D3) [Vitamin D3] 2,000 unit PO DAILY 12/31/18 [History] Cyanocobalamin (Vitamin B12) [Vitamin B12] 1,000 mcg PO ASDIRECTED 12/31/18 [History] Folic Acid 1 mg PO DAILY 12/31/18 [History] Gabapentin [Neurontin] 200 mg PO BEDTIME 12/11/20 [History] Ibuprofen 600 mg PO BID PRN 12/11/20 [History] Ferrous Sulfate [Iron] 325 mg PO DAILY #90 tablet 03/31/21 [Rx] Magnesium Oxide 800 mg PO BID #30 tablet 03/31/21 [Rx] Thiamine [Vitamin B-1] 100 mg PO DAILY #30 tablet 03/31/21 [Rx] Past Medical History HEENT History: Reports: Impaired Vision, Other (See Below) (chronic dizziness) Cardiovascular History: Reports: High Cholesterol 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: Reports: COPD [employer] History: Reports: Musculoskeletal History: Reports: Other (See Below) (Osteopenia) Neurological History: Reports: Vertigo Dermatologic History: Reports: Other (See Below) Other Dermatologic History: many scabbed lesions covering entire body. Pt. states "bug bites". - Infectious Disease History Infectious Disease History: Reports: Chicken Pox, Measles, Mumps - Past Surgical History Cardiovascular Surgical History: Reports: None GI Surgical History: Reports: Colonoscopy Female Surgical History: Reports: Cystectomy Musculoskeletal Surgical History: Reports: Hip Replacement, Knee Replacement, Other (See Below) Other Musculoskeletal Surgeries/Procedures:: knee replacement on L, Hip replacement on R. Social & Family History - Family History Family Medical History: No Pertinent Family History - Caffeine Use Caffeine Use: Reports: Soda Caffeine Use Comment: very occasionally ED ROS GENERAL - Review of Systems Review Of Systems: See Below Constitutional: Reports: No Symptoms HEENT: Reports: Other (head pain) Respiratory: Reports: No Symptoms Cardiovascular: Reports: No Symptoms Endocrine: Reports: No Symptoms GI/Abdominal: Reports: No Symptoms : Reports: No Symptoms Musculoskeletal: Reports: Neck Pain Skin: Reports: No Symptoms Neurological: Reports: Headache. Denies: Confusion, Numbness, Change in Speech Psychiatric: Reports: No Symptoms Hematologic/Lymphatic: Reports: No Symptoms Immunologic: Reports: No Symptoms ED EXAM, GENERAL - Physical Exam Exam: See Below Exam Limited By: No Limitations General Appearance: Alert, WD/WN, No Apparent Distress Eye Exam: Bilateral Eye: EOMI, Normal Fundi, Normal Inspection, PERRL Throat/Mouth: Normal Inspection, Normal Lips, Normal Teeth, Normal Oropharynx, Normal Voice, No Airway Compromise Head: Atraumatic, Normocephalic Neck: Supple, Limited Range of Motion, Tender Lateral, Tender Midline Respiratory/Chest: No Respiratory Distress, Lungs Clear, Normal Breath Sounds, No Accessory Muscle Use, Chest Non-Tender Cardiovascular: Normal Peripheral Pulses, Regular Rate, Rhythm, No Edema, No JVD, No Murmur Peripheral Pulses: 4+: Radial (L) GI/Abdominal: Soft, Non-Tender, No Distention, No Mass (Female) Exam: Deferred Rectal (Female) Exam: Deferred Extremities: Normal Inspection, Normal Range of Motion, Non-Tender, No Pedal Edema, Normal Capillary Refill Neurological: Alert, Oriented, CN II-XII Intact, Normal Cognition, Normal Gait, Normal Reflexes, No Motor/Sensory Deficits Psychiatric: Normal Affect, Normal Mood Course - Orders/Labs/Meds Orders: Active Orders 24 hr Category Date Time Status Cervical Spine wo Cont [CT] Stat Exams 04/13/21 11:02 Taken Head wo Cont [CT] Stat Exams 04/13/21 11:01 Taken - Radiology Interpretation Free Text/Narrative:: CT brain and cervical spine negative for acute pathology. Diffuse small vessel disease of brain noted. Departure - Departure Time of Disposition: 12:30 Disposition: Home, Self-Care 01 Clinical Impression: Closed head injury - Discharge Information Instructions: Head Injury, Adult Referrals: PCP,None [Primary Care Provider] - Forms: ED Department Discharge Additional Instructions: Home to rest. Tylenol as needed for headache. It is going to take some time for the discomfort in your head and neck to resolve. Recheck in clinic in 10 days. - Problem List Review Problem List Initiated/Reviewed/Updated: Yes - My Orders Last 24 Hours: My Active Orders 04/13/21 11:01 Head wo Cont [CT] Stat 04/13/21 11:02 Cervical Spine wo Cont [CT] Stat - Assessment/Plan Last 24 Hours: My Active Orders 04/13/21 11:01 Head wo Cont [CT] Stat 04/13/21 11:02 Cervical Spine wo Cont [CT] Stat Plan: Pt. was discharged. She was given handouts on head injury. Advised to follow-up in clinic in 7-10 days, sooner if not gradually improving.
== END 2021-04-13 12:35 | disposition home or self-care (01) ==
LOC: LL.ED 10:50
DX: S06.9X9A Unspecified intracranial injury with loss of consciousness of unspecified duration, initial encounter (principal); E78.00 Pure hypercholesterolemia, unspecified; J44.9 Chronic obstructive pulmonary disease, unspecified; Z88.8 Allergy status to other drugs, medicaments and biological substances; Z88.5 Allergy status to narcotic agent; Z79.899 Other long term (current) drug therapy; W18.09XA Striking against other object with subsequent fall, initial encounter
CPT/HCPCS: 70450; 72125; 99284; 99284-25